=== PATIENT | male | born 1955 | race Caucasian/White ===

== ENCOUNTER → 2017-06-10 10:01 | Outpatient (CLI) | payer MEDICARE, SELFPAY ==
[2017-06-10 10:08] LABS: Microscopic, Urine URINE MICROSCOPIC (MICROSCOPIC)
[2017-06-10 10:33] LABS: Basophils % 0.3 % (0.1-2.0); Eosinophils # 0.1 K/mm3 (0.0-0.4); Eosinophils % 0.8 % (0.1-12.0); Hematocrit 44.2 % (42.0-52.0); Hemoglobin 14.5 g/dL (14.1-18.0); Lymphocytes % 16.7 K/mm3 (10-50); Mean Corpuscular HGB Conc 32.9 g/dL (31.8-35.4); Mean Corpuscular Volume 94.3 fl (80-94); Mean Platelet Volume 6.7 fl (7.4-10.4); Monocytes # 0.4 K/mm3 (0.1-1.0); Monocytes % 6.6 % (1.7-9.3); Neutrophils # 4.4 K/mm3 (1.8-7.8); Neutrophils % 75.5 % (37.0-80.0); Platelet Count 294 K/mm3 (142-424); Red Blood Count 4.68 M/mm3 (4.60-6.20); Red Cell Distribution Width 13.2 % (11.5-17.5); White Blood Count 5.8 K/mm3 (4.8-10.8)
[2017-06-10 10:57] LABS: Alanine Aminotransferase 14 U/L (12-78); Albumin Level 3.4 gm/dL (3.4-5.0); Alkaline Phosphatase 93 U/L (46-116); Anion Gap 11.3 mEq/L (5-15); Aspartate Amino Transferase 12 U/L (15-37); Bilirubin,Total 0.2 mg/dL (0.2-1.0); Blood Urea Nitrogen 9 mg/dL (7-18); Calcium 8.7 mg/dL (8.5-10.1); Carbon Dioxide 28 mmol/L (21.0-32.0); Chloride 102 mmol/L (98-107); Creatinine,Serum 0.61 mg/dL (0.70-1.30); Estimated Glomerular Filt Rate 134 ml/min (>60); GFR (African American) 162 ML/MIN (>60); Globulin 3.3 gm/dl (1.3-3.2); Glucose 99 mg/dL (74-106); Potassium 4.3 mmoL/L (3.5-5.1); Sodium 137 mmol/L (136-145); Total Protein,Serum 6.7 gm/dL (6.4-8.2)
[2017-06-10 11:13] LABS: Appearance,Urine CLEAR (Clear); Bilirubin,Urine Negative (Negative); Blood, Urine TRACE-I (Negative); Color,Urine YELLOW (Yellow); Glucose,Urine (UA) Negative (Negative); Ketones,Urine Negative (Negative); Leukocyte Esterase,Urine Negative (Negative); Nitrate,Urine Negative (Negative); PH,Urine 6.5 (5.0-8.5); Protein,Urine Negative (Negative); Urobilinogen,Urine 0.2 EU/dl (0.2)
[2017-06-10 11:52] LABS: Bacteria,Urine Trace /lpf; RBC,Urine Occasional #/hpf (0-3); Squamous Epithelial Cell,Urine Occasional #/hpf (0-5)
== END ==
PROVIDERS: Visit Provider Surgery
DX: R10.30 Lower abdominal pain, unspecified (principal)
CPT/HCPCS: 36415; 80053; 81001; 85025; 93005

== ENCOUNTER → 2018-07-11 10:10 | Outpatient (CLI) | payer MEDICARE, SELFPAY ==
[2018-07-11 11:02] LABS: Basophils % 0.2 % (0.1-2.0); Eosinophils # 0.1 K/mm3 (0.0-0.4); Eosinophils % 0.9 % (0.1-12.0); Hematocrit 36.9 % (42.0-52.0); Hemoglobin 12.3 g/dL (14.1-18.0); Lymphocytes # 0.4 K/mm3 (0.7-4.5); Lymphocytes % 7.2 % (10-50); Mean Corpuscular HGB Conc 33.4 g/dL (31.8-35.4); Mean Corpuscular Hemoglobin 31.4 pg (27.0-31.2); Mean Corpuscular Volume 94.1 fl (80-94); Mean Platelet Volume 6.5 fl (7.4-10.4); Monocytes # 0.4 K/mm3 (0.1-1.0); Monocytes % 5.9 % (1.7-9.3); Neutrophils # 5.2 K/mm3 (1.8-7.8); Neutrophils % 85.8 % (37.0-80.0); Platelet Count 232 K/mm3 (142-424); Red Blood Count 3.92 M/mm3 (4.60-6.20); Red Cell Distribution Width 13.7 % (11.5-17.5)
[2018-07-11 11:12] LABS: MANUAL DIFFERENTIAL MANUAL DIFFERENTIAL (MANUAL DIFF)
[2018-07-11 11:53] LABS: Alanine Aminotransferase 21 U/L (12-78); Albumin Level 3.6 gm/dL (3.4-5.0); Albumin/Globulin Ratio 1.2 (1.1-1.8); Alkaline Phosphatase 97 U/L (46-116); Anion Gap 14.5 mEq/L (5-15); Aspartate Amino Transferase 18 U/L (15-37); Bilirubin,Total 0.3 mg/dL (0.2-1.0); Blood Urea Nitrogen 7 mg/dL (7-18); Calcium 8.8 mg/dL (8.5-10.1); Carbon Dioxide 25 mmol/L (21.0-32.0); Chloride 89 mmol/L (98-107); Creatinine,Serum 0.53 mg/dL (0.70-1.30); Estimated Glomerular Filt Rate 157 ml/min (>60); GFR (African American) 189 ML/MIN (>60); Globulin 3.1 gm/dl (1.3-3.2); Glucose 87 mg/dL (74-106); Potassium 4.5 mmoL/L (3.5-5.1); Sodium 124 mmol/L (136-145); Thyroid Stimulating Hormone 0.54 uIU/ml (0.358-3.740); Total Protein,Serum 6.7 gm/dL (6.4-8.2)
[2018-07-11 13:13] LABS: Eosinophils % 1 % (0-3); Lymphocytes % 7 % (10-50); Monocytes % 5 % (2-9); Neutrophils % 87 % (42-76); Platelet Estimate Normal; RBC Morphology Normal; Total Cells Counted 100
[2018-07-12 07:02] LABS: Vitamin B12 263 pg/mL (232-1245)
[2018-07-12 10:54] LABS: Folate 19.3 ng/mL (>3.0); Rapid Plasma Reagin Ab Titer Non Reactive (NonRea<1:1)
[2018-07-13 14:10] LABS: Vitamin B1 108.2 nmol/L (66.5-200.0)
== END ==
PROVIDERS: Visit Provider Specialist
DX: F03.91 Unspecified dementia, unspecified severity, with behavioral disturbance (principal); G20 Parkinson's disease; G95.9 Disease of spinal cord, unspecified; H51.0 Palsy (spasm) of conjugate gaze; R29.2 Abnormal reflex; R48.2 Apraxia; E03.9 Hypothyroidism, unspecified
CPT/HCPCS: 36415; 80053; 82607; 82746; 84425; 84443; 85007; 85025; 86592

== ENCOUNTER → 2018-07-18 13:29 | Outpatient (CLI) | payer MEDICARE, SELFPAY ==
--- NOTE | 2018-07-18 13:32 | MR_ITS ---
MR cervical spine wo con, MR 3-d myelogram/MRCP HISTORY: Neck pain, headache. X5wks. ITS.REASON: evaluation for normal pressure hydrocephalus ORDERING PHYSICIAN: Maru Beltrán MD PATIENT AGE: 62 years Comparison: None TECHNIQUE: Standard multiplanar multiecho sequences are performed without contrast. 3-D MIP and myelographic images are also rendered and reviewed FINDINGS: The craniocervical junction has an unremarkable appearance. Alignment is maintained. There is multilevel cervical spondylosis with degenerative disc disease and facet and uncovertebral hypertrophy with canal stenosis at multiple levels. C2-C3: Degenerative disc disease with bulging disc/disc osteophyte complex and hypertrophy of the laminae with resultant canal stenosis of 8 mm with compression upon both the anterior and posterior aspect of the cord with canal measuring approximately 6 mm. There is bilateral foraminal narrowing. C3-C4: Bulging disc/disc osteophyte complex along with hypertrophy of the lamina leads to severe canal stenosis of approximately 5 mm with compression upon both the anterior and posterior aspect of the cord. Bilateral lateral recess and foraminal narrowing also noted slightly greater on the left. C4-C5: Degenerative disc disease. There is 3 mm anterolisthesis of C4 with bulging disc along with facet and ligamentum flavum hypertrophy with canal stenosis with canal measuring 6 mm with mild impingement upon the cord and moderate to severe bilateral foraminal narrowing. C5-C6: Degenerative disc disease. There is ridging of the endplates posteriorly with broad-based disc protrusion versus disc osteophyte complex with canal stenosis and bilateral lateral recess and foraminal narrowing. There is mild kyphosis at this level. C6-C7: Degenerative disc disease with bulging disc with narrowing of the canal with bilateral foraminal narrowing and canal stenosis. C7-T1: Degenerative disc disease with narrowing of the canal. Incidental note is made of enlarged right lobe of the thyroid gland with tracheal shift to the left by approximately 1 cm. IMPRESSION: Abnormal MRI of the cervical spine. There is multilevel degenerative disc disease with disc osteophyte complexes with resultant severe canal stenosis at multiple levels with cord compression along with lateral recess and foraminal narrowing. Please see above for detailed description at each level. Enlarged right lobe of the thyroid gland with tracheal compression for the left
--- NOTE | 2018-07-18 13:32 | MR_ITS ---
MR head/brain wo con HISTORY: Headache, double vision, dizziness ITS.REASON: evaluation for normal pressure hydrocephalus ORDERING PHYSICIAN: Maru Beltrán MD PATIENT AGE: 62 years Comparison: None TECHNIQUE: Standard multiplanar multiecho sequences are performed without contrast. FINDINGS: No midline shift, mass effect, intracranial hemorrhage, or hydrocephalus is evident. No evidence of acute infarction. There is some mild atrophy. Nonspecific periventricular and subcortical T2 white matter hyperintensities are present along with nonspecific central increase in T2 signal within the jessica. Is are likely related to areas of ischemic gliotic change from microvascular disease. No restricted diffusion. The ventricles are not enlarged considering the mild degree of atrophy and there is no evidence of transependymal flow of CSF. The cerebellopontine angles, cerebellum, and brainstem are unremarkable. No mastoid effusion or sinus air-fluid level. The optic chiasm and craniocervical junction are unremarkable. There is canal stenosis in the upper cervical spine as described in the MRI C-spine report. There is a small area decreased T2 signal within the posterior aspect of the pituitary. This is of questionable clinical significance. IMPRESSION: 1. No acute intracranial findings. 2. No evidence of hydrocephalus. 3. Mild atrophy with periventricular ischemic gliotic change.
== END ==
PROVIDERS: PCP Emergency Medicine; Visit Provider Specialist
DX: F03.91 Unspecified dementia, unspecified severity, with behavioral disturbance (principal); G20 Parkinson's disease; G95.9 Disease of spinal cord, unspecified; H51.0 Palsy (spasm) of conjugate gaze; R29.2 Abnormal reflex; R48.2 Apraxia
CPT/HCPCS: 70551; 72141; 76376

== ENCOUNTER → 2018-07-28 14:05 | Outpatient (POV) | payer MEDICARE, SELFPAY | PROVIDERS: Visit Provider Neurological Surgery | DX: Z00.00 Encounter for general adult medical examination without abnormal findings (principal) ==

== ENCOUNTER → 2018-08-11 13:01 | Outpatient (CLI) | payer MEDICARE, SELFPAY ==
--- NOTE | 2018-08-11 13:03 | US_ITS ---
US thyroid HISTORY: ITS.REASON: enlarged thyroid ORDERING PHYSICIAN: Yovany Lebron MD PATIENT AGE: 62 years Comparison: None FINDINGS: The right lobe of the thyroid gland is enlarged at 6 x 2.3 x 3 cm. Multiple nodules are present including Nodule A: Mixed echogenicity in the mid polar region at 17 x 10 mm. Nodule B: Solid appearing isoechoic nodule in the lower pole at 26 x 24 mm. The left lobe is enlarged at 5.2 x 1.8 x 2.2 cm. A mixed nodule is present in the upper pole at 6 x 4 mm. A slightly hyperechoic nodule present in the lower pole at 7 x 9 mm. A isoechoic 17 x 14 mm nodule is present in the lower pole on the left IMPRESSION: Enlarged thyroid gland with dominant 26 x 24 mm solid-appearing nodule in the lower pole on the right. Other smaller nodules are noted bilaterally as described above
[2018-08-11 15:28] LABS: Free T4 (Free Thyroxine) 2.35 ng/dl (0.76-1.46); Thyroid Stimulating Hormone 0.66 uIU/ml (0.358-3.740)
[2018-08-13 20:35] LABS: Triiodothyronine (T3) Free 2.7 pg/mL (2.0-4.4)
== END ==
PROVIDERS: PCP Emergency Medicine; Visit Provider Otolaryngology
DX: E04.9 Nontoxic goiter, unspecified (principal); J39.8 Other specified diseases of upper respiratory tract
CPT/HCPCS: 36415; 76536; 84439; 84443; 84481

== ENCOUNTER → 2018-08-11 13:58 | Outpatient (CLI) | payer MEDICARE, SELFPAY | PROVIDERS: Visit Provider Otolaryngology | DX: E04.9 Nontoxic goiter, unspecified (principal); J39.8 Other specified diseases of upper respiratory tract | CPT/HCPCS: 36415; 76536; 84439; 84443; 84481 ==

== ENCOUNTER → 2018-09-27 09:55 | Outpatient (CLI) | payer MEDICARE, MEDICAID, SELFPAY ==
--- NOTE | 2018-09-27 10:16 | US_ITS ---
US FNA Thyroid HISTORY: ITS.REASON: RT THYROID NODULE ORDERING PHYSICIAN: Yovany Lebron MD PATIENT AGE: 63 years COMPARISON: None TECHNIQUE: Following obtaining informed consent, using aseptic technique and local anesthesia with buffered lidocaine, fine-needle aspiration was performed of the dominant lower pole nodule on the right of interest using sonographic guidance. 3 passes were made into the nodule with a 25-gauge needle. Specimen was given to cytology. The patient tolerated the procedure well without evidence of immediate complications and left the ultrasound suite in stable condition. CYTOLOGY:Benign cystic follicular nodule, negative for malignancy IMPRESSION: Successful sonographic guided fine needle aspiration of the right lobe of the thyroid gland showing benign findings.
== END ==
PROVIDERS: PCP Emergency Medicine; Visit Provider Otolaryngology
DX: E04.1 Nontoxic single thyroid nodule (principal)
CPT/HCPCS: 10005; 76536; 76942; 88173; 88305

== ENCOUNTER 2018-11-17 16:27 | Inpatient (IN) ==
--- NOTE | 2018-11-17 16:37 | Emergency Department Note ---
ED Disposition Clinical Impression: Healthcare-associated pneumonia, Ureteral calculus Disposition: Admitted as Observation Condition on Discharge: Good Referrals: Chad Byers MD [Primary Care Provider] - - Critical Care Critical Care Time: No Attestation: On , the high probability of a clinically significant, sudden or life threatening deterioration of the following system(s) required my full and direct attention, intervention and personal management. The time I documented below is in addition to time spent performing reported procedures but includes the following listed in this critical care notation. Medical Decision Making - Raul Inquiry Pt receiving controlled substance: No Vital Signs: 11/17/18 16:29 11/17/18 16:49 11/17/18 17:14 Temperature 99.1 F 99.7 F H Temperature Source Axillary Rectal Pulse Rate [Right Brachial] 80 99 H Respiratory Rate 20 Blood Pressure [Right Arm] 145/92 H 137/71 Blood Pressure Mean [Right Arm] 109 93 Blood Pressure Source [Right Arm] Automatic Cuff Automatic Cuff Blood Pressure Position [Right Arm] Sitting Sitting 02 Sat by Pulse Oximetry 96 92 L Oxygen Delivery Method Room Air Room Air 11/17/18 17:45 Temperature Temperature Source Pulse Rate [Right Brachial] 89 Respiratory Rate Blood Pressure [Right Arm] 138/80 Blood Pressure Mean [Right Arm] 99 Blood Pressure Source [Right Arm] Automatic Cuff Blood Pressure Position [Right Arm] Sitting 02 Sat by Pulse Oximetry 96 Oxygen Delivery Method Room Air - Lab Data Lab Results 11/17/18 16:50: WBC 19.4 H, RBC 3.95 L, Hgb 12.0 L, Hct 36.9 L, MCV 93.5, MCH 30.3, MCHC 32.4, RDW 14.9, Plt Count 420, MPV 6.2 L, Neut % (Auto) 92.5 H, Lymph % (Auto) 3.1 L, [place] % (Auto) 4.1, Eos % (Auto) 0.2, Baso % (Auto) 0.1, Neut # (Auto) 17.9 H, Lymph # (Auto) 0.6 L, [place] # (Auto) 0.8, Eos # (Auto) 0.0, Baso # (Auto) 0.0, Total Counted 100, Neutrophils % (Manual) 92 H, Band Neutrophils % 5.0, Lymphocytes % (Manual) 2 L, Metamyelocytes % 1.0, Platelet Estimate Normal, RBC Morphology Normal 11/17/18 16:50: Sodium 137, Potassium 3.8, Chloride 100, Carbon Dioxide 31, Anion Gap 9.8, BUN 18, Creatinine 0.82, Estimated Creat Clear 75, Estimated GFR 94, Est GFR ( Amer) 114, Glucose 102, Calcium 9.0, Total Bilirubin 0.3, AST 19, ALT 32, Alkaline Phosphatase 117 H, Troponin I < 0.02, Total Protein 6 .8, Albumin 2.9 L, Globulin 3.9 H, Albumin/Globulin Ratio 0.7 L, TSH 0.62 11/17/18 17:00: Urine Color Dark yellow, Urine Appearance Clear, Urine pH 6.5, Ur Specific [place] 1.025, Urine Protein Trace, Urine Glucose (UA) Negative, Urine Ketones Negative, Urine Blood 3+, Urine Nitrate Negative, Urine Bilirubin Negative, Urine Urobilinogen 2.0, Ur Leukocyte Esterase Negative, Urine RBC 50- 100, Urine WBC Occasional, Ur Squamous Epith Cells Occasional, Urine Bacteria Trace 11/17/18 17:05: Lactate 0.9 Result diagrams: 11/17/18 16:50 11/17/18 16:50 Orders (Tests/Meds): ED MEDICATIONS Generic Name Dose Route Start Last Admin Trade Name Freq PRN Reason Stop Dose Admin Cefepime HCl 2 gm/ Sodium 100 mls @ 200 mls/hr 11/17/18 19:45 11/17/18 19:53 Chloride IV 12/01/18 19:44 200 mls/hr Q12H ELVIS Administration Protocol Levofloxacin/Dextrose 750 mg in 150 mls @ 100 mls/hr 11/17/18 19:45 11/17/18 20:42 Levofloxacin 750mg/150ml Premix IV 12/01/18 19:44 100 mls/hr Q24H ELVIS Administration Protocol Miscellaneous 1 each 11/17/18 19:45 Vancomycin Consult Request NOTAPPLIC 11/18/18 07:37 CONSULT PHARMACY ELVIS ORDERS Category Date Time Status CT abdomen pelvis wo con Stat Cat Scan 11/17/18 17:38 Taken Blood Culture Stat Micro 11/17/18 17:00 Received Urine Culture Routine Micro 11/17/18 20:20 Ordered - CT Data CT Scan: Abdomen, Pelvis Time Received: 19:[address] Reviewed: Yes: I have viewed the radiologist's interpretation Findings Narrative: CT scan interpreted by [facility] radiologist. Faxed report received and reviewed: High concern for a 4 mm stone in the distal left ureter without significant upstream hydroureteronephrosis, however there is mild left pelviectasis when compared with the right. Follow-up is recommended. Severe constipation. Concern for developing airspace disease versus scarring in the right lung base. - ECG Data Tracing #1 EKG interpreted by Derek Arguello MD: Rhythm: sinus Rate: 91 [place]: normal Ectopy: none Conduction: normal ST Segment Changes: none T Wave Changes: none Q Waves: none No evidence of acute ischemia or injury - Physician Consults Physician Consulted: Zeeshan Time: 20:35 Reason -: Admission Comment/Response: Agrees to admit the patient to the hospital. We discussed the patient's clinical information, including history, exam, laboratory and radiology results and ED course. Per hospital procedure, I will write temporary bridge inpatient orders on the patient. Specific orders requested by the admitting physician: Continue antibiotics General Adult HPI - General Chief complaint: Weakness Stated complaint: WEAKNESS Time Seen by Provider: 11/17/18 16:37 - History of Present Illness HPI narrative: Brought in by ambulance from alf. Patient has speech that is very difficult to understand, making history taking difficult. Able to answer yes/no questions without difficulty. He indicates to me that he does not have any edel n. He denies any specific complaint. He was sent here because he is weak. Decrease in functioning, unable to feed himself today. The patient is noted to have a cough in the emergency room. He denies trouble breathing. He knows he is in the hospital. He states he does not know the year. Noted to have been seen here 4 days ago for a fall. Had a CAT scan of his head as well as his entire spine and an extensive work-up. - Related Data Home Medications Medication Instructions Recorded Confirmed acetaminophen 325 mg capsule 650 mg PO Q4-6H PRN 06/09/17 11/13/18 levothyroxine 75 mcg capsule 75 mcg PO ONCE 06/09/17 11/13/18 lorazepam 1 mg tablet 0.5 mg PO DAILY 06/09/17 11/13/18 pravastatin 80 mg tablet 80 mg PO QHS 06/09/17 11/13/18 risperidone 4 mg tablet 0.5 mg PO ONCE 06/09/17 11/13/18 haloperidol 5 mg tablet 2.5 mg PO BID 28 Days #56 tab 07/11/18 11/13/18 oxcarbazepine 600 mg tablet 600 mg PO BID 28 Days #56 tab 07/11/18 11/13/18 sertraline 100 mg tablet 100 mg PO DAILY 28 Days #28 tab 07/11/18 11/13/18 LORazepam [Lorazepam 1mg Tablet] 1 mg PO DAILY 11/13/18 11/13/18 risperiDONE [Risperdal 1mg Tablet] 4 mg PO BID 11/13/18 11/13/18 Allergies Allergy/AdvReac Type Severity Reaction Status Date / Time No Known Allergies Allergy Verified 11/08/18 15:02 [facility] History - Hepatitis A Screen Attestation statement:: This patient has been screened for Hepatitis A risk factors. I have reviewed the patient's past medical history: Yes Medical History: Reports:: Hyperlipidemia, Hypertension Denies:: Diabetes Mellitus Type 1, Diabetes Mellitus Type 2 Other Medical History: Reports: Thyroid Disease Comment: mood disorder w/ hx of delusions Laterality Cases: Bilateral: Tonsillectomy - Social History Smoking Status: Current every day smoker Tobacco Type: cigarettes # Packs/Day (cigarettes): 1 Alcohol Intake: never Alcohol Intake Frequency:: other Substance Use Type: denies use Occupational Status: retired Housing: assisted living facility Family Hx:: Unable to obtain ROS Obtained: Yes All systems reviewed & no additional complaints - Constitutional Constitutional: Reports weakness - ENT Ears, Nose, Mouth, and Throat: Denies otalgia, Denies sore throat - Cardiovascular Cardiovascular: Denies chest pain - Respiratory Respiratory: Yes cough, No dyspnea - Gastrointestinal Gastrointestingal: Denies: abdominal pain, diarrhea, vomiting - Neurologic Neurologic: Denies headache(s) Physical Exam - General General appearance: alert, in no apparent distress - Head Head exam: atraumatic, normocephalic - Eye Eye exam: Present: normal appearance, EOMI - ENT ENT exam: Present: mucous membranes moist - Neck Neck exam: Present: normal inspection, trachea midline - Chest Chest inspection: Present: normal inspection, symmetric chest wall rise - Respiratory Respiratory exam: Present: normal lung sounds bilaterally, other (congested cough). Absent: respiratory distress - Cardiovascular Cardiovascular exam: Present: regular rate, normal rhythm, normal heart sounds - Abdominal Exam Abdominal exam: Present: soft, normal bowel sounds. Absent: distention, tenderness, guarding, rebound, rigidity Comment: Abdomen very soft. No grimace or guarding with palpation. - Extremities Exam Extremities exam: Present: normal inspection - Neurological Exam Neurological exam: Present: alert, other (General weakness, but no focal weakness. 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 Wiggles toes both feet.) - Psychiatric Psychiatric exam: Present: normal affect, normal mood - Skin Skin exam: Present: warm, dry
[2018-11-17 17:03] LABS: Basophils % 0.1 % (0.1-2.0); Eosinophils % 0.2 % (0.1-12.0); Hematocrit 36.9 % (42.0-52.0); Lymphocytes # 0.6 K/mm3 (0.7-4.5); Lymphocytes % 3.1 % (10-50); Mean Corpuscular HGB Conc 32.4 g/dL (31.8-35.4); Mean Corpuscular Volume 93.5 fl (80-94); Mean Platelet Volume 6.2 fl (7.4-10.4); Monocytes # 0.8 K/mm3 (0.1-1.0); Monocytes % 4.1 % (1.7-9.3); Neutrophils # 17.9 K/mm3 (1.8-7.8); Neutrophils % 92.5 % (37.0-80.0); Platelet Count 420 K/mm3 (142-424); Red Blood Count 3.95 M/mm3 (4.60-6.20); Red Cell Distribution Width 14.9 % (11.5-17.5); White Blood Count 19.4 K/mm3 (4.8-10.8)
[2018-11-17 17:13] LABS: Microscopic, Urine URINE MICROSCOPIC (MICROSCOPIC)
[2018-11-17 17:15] LABS: Appearance,Urine CLEAR (Clear); Blood, Urine 3+ (Negative); Glucose,Urine (UA) Negative (Negative); Ketones,Urine Negative (Negative); Leukocyte Esterase,Urine Negative (Negative); PH,Urine 6.5 (5.0-8.5); Protein,Urine TRACE (Negative); Specific Gravity, Urine 1.025 (1.005-1.030)
[2018-11-17 17:18] LABS: Bilirubin,Urine Negative (Negative); Color,Urine Dark Yellow (Yellow)
[2018-11-17 17:22] LABS: Alanine Aminotransferase 32 U/L (12-78); Albumin Level 2.9 gm/dL (3.4-5.0); Albumin/Globulin Ratio 0.7 (1.1-1.8); Alkaline Phosphatase 117 U/L (46-116); Anion Gap 9.8 mEq/L (5-15); Aspartate Amino Transferase 19 U/L (15-37); Bilirubin,Total 0.3 mg/dL (0.2-1.0); Blood Urea Nitrogen 18 mg/dL (7-18); Carbon Dioxide 31 mmol/L (21.0-32.0); Chloride 100 mmol/L (98-107); Globulin 3.9 gm/dl (1.3-3.2); Glucose 102 mg/dL (74-106); Lymphocytes % 2 % (10-50); Neutrophils % 92 % (42-76); Sodium 137 mmol/L (136-145); Thyroid Stimulating Hormone 0.62 uIU/ml (0.358-3.740); Total Cells Counted 100; Total Protein,Serum 6.8 gm/dL (6.4-8.2)
[2018-11-17 17:23] LABS: RBC Morphology Normal
[2018-11-17 17:23] LABS: Bacteria,Urine Trace /lpf; RBC,Urine 50-100 #/hpf (0-3); Squamous Epithelial Cell,Urine Occasional #/hpf (0-5); WBC,Urine Occasional #/hpf (0-3)
--- NOTE | 2018-11-17 22:22 | History & Physical Report ---
*Admission Date: 11/17/18 *Chief complaint: change in mental status *History of present illness: this wm who resides at [facility] was noted -ought in by ambulance from senior living. Patient has speech that is very difficult to understand, making history taking difficult. Able to answer yes/no questions without difficulty. He indicates to me that he does not have any pain. He denies any specific complaint. He was sent here because he is weak. Decrease in functioning, unable to feed himself today. The patient is noted to have a cough in the emergency room. He denies trouble breathing. He knows he is in the hospital. He states he does not know the year. Noted to have been seen here 4 days ago for a fall. Had a CAT scan of his head as well as his entire spine and an extensive work-up. pt was admitted with [facility] History I have reviewed the patient's past medical history: Yes Medical History: Reports:: Hyperlipidemia, Hypertension Denies:: Diabetes Mellitus Type 1, Diabetes Mellitus Type 2 *Have you ever received a pneumonia vaccine?: No (UNKNOWN) *Have you received a flu vaccine this season?: No (UNKNOWN) Other Medical History: Reports: Thyroid Disease Laterality Cases: Bilateral: Tonsillectomy - *Social History Smoking Status: Current every day smoker Tobacco Type: cigarettes # Packs/Day (cigarettes): 1 Alcohol Intake: never Alcohol Intake Frequency:: other Substance Use Type: denies use *Occupational Status:: retired Housing: assisted living facility *Travel in the last 8 weeks: None Family Hx:: Unable to obtain Review of Systems - Review of Systems Review of systems:: pertinent systems reviewed and negative unless documented below - Constitutional Denies fever(s) - Eyes Denies change in vision - ENT Denies sore throat - *Cardiovascular Denies shortness of breath - *Respiratory Reports cough, Denies coughing up blood - *Gastrointestinal Denies abdominal pain - *Genitourinary Denies blood in urine - *Musculoskeletal Denies joint pain - Integumentary/Breasts Denies rash - *Neurologic Reports weakness, Denies headache(s) - Psychiatric Reports anxiety Meds Home Medications Medication Instructions Recorded Confirmed Type levothyroxine 75 mcg capsule 75 mcg PO DAILY 06/09/17 11/17/18 History lorazepam 1 mg tablet 0.5 mg PO DAILY 06/09/17 11/17/18 History pravastatin 80 mg tablet 80 mg PO QHS 06/09/17 11/17/18 History risperidone 4 mg tablet 0.5 mg PO DAILY 06/09/17 11/17/18 History haloperidol 5 mg tablet 2.5 mg PO BID 28 Days #56 tab 07/11/18 11/18/18 History oxcarbazepine 600 mg tablet 600 mg PO BID 28 Days #56 tab 07/11/18 11/17/18 History sertraline 100 mg tablet 100 mg PO DAILY 28 Days #28 tab 07/11/18 11/17/18 History LORazepam [Lorazepam 1mg Tablet] 1 mg PO HS 11/13/18 11/17/18 History risperiDONE [Risperdal 1mg Tablet] 4 mg PO BID 11/13/18 11/17/18 History Thiamine HCl [Vitamin B-1] 100 mg PO DAILY 11/17/18 11/17/18 History Acetaminophen 650 mg PO Q4-6H PRN 11/18/18 11/18/18 History Allergies Allergy/AdvReac Type Severity Reaction Status Date / Time No Known Allergies Allergy Verified 11/08/18 15:02 Exam Vital signs and Labs for Last 24 Hours: Temp Pulse Resp BP Pulse Ox 99.7 F H 88 16 146/78 H 96 11/17/18 21:57 11/17/18 21:57 11/17/18 21:57 11/17/18 21:57 11/17/18 17:45 Laboratory Results - last 24 hr 11/17/18 16:50: WBC 19.4 H, RBC 3.95 L, Hgb 12.0 L, Hct 36.9 L, MCV 93.5, MCH 30.3, MCHC 32.4, RDW 14.9, Plt Count 420, MPV 6.2 L, Neut % (Auto) 92.5 H, Lymph % (Auto) 3.1 L, [place] % (Auto) 4.1, Eos % (Auto) 0.2, Baso % (Auto) 0.1, Neut # (Auto) 17.9 H, Lymph # (Auto) 0.6 L, [place] # (Auto) 0.8, Eos # (Auto) 0.0, Baso # (Auto) 0.0, Total Counted 100, Neutrophils % (Manual) 92 H, Band Neutrophils % 5.0, Lymphocytes % (Manual) 2 L, Metamyelocytes % 1.0, Platelet Estimate Normal, RBC Morphology Normal 11/17/18 16:50: Sodium 137, Potassium 3.8, Chloride 100, Carbon Dioxide 31, Anion Gap 9.8, BUN 18, Creatinine 0.82, Estimated Creat Clear 75, Estimated GFR 94, Est GFR ( Amer) 114, Glucose 102, Calcium 9.0, Total Bilirubin 0.3, AST 19, ALT 32, Alkaline Phosphatase 117 H, Troponin I < 0.02, Total Protein 6.8, Albumin 2.9 L, Globulin 3.9 H, Albumin/Globulin Ratio 0.7 L, TSH 0.62 11/17/18 17:00: Urine Color Dark yellow, Urine Appearance Clear, Urine pH 6.5, Ur Specific [place] 1.025, Urine Protein Trace, Urine Glucose (UA) Negative, [place] Ketones Negative, Urine Blood 3+, Urine Nitrate Negative, Urine Bilirubin Negative, Urine Urobilinogen 2.0, Ur Leukocyte Esterase Negative, Urine RBC 50- 100, Urine WBC Occasional, Ur Squamous Epith Cells Occasional, Urine Bacteria Trace 11/17/18 17:05: Lactate 0.9 I & O for Last 24 hours: Intake & Output 11/15/18 11/16/18 11/17/18 11/18/18 11:59 11:59 11:59 11:59 Intake Total 200 / 200 Balance 200 / 200 Weight 158 lb 8 oz - Constitutional no acute distress - *Routine HEENT Exam Head: Present: normocephalic Eye: Present: EOMI, PERRL. Absent: conjunctival icterus ENT: Present: mucous membranes dry - *Routine Neck Exam Absent: JVD - *Routine Respiratory Exam Present: decreased breath sounds - *Routine Cardiovascular Exam Present: RRR, murmur, S4 - *Routine Abdominal Exam Present: soft - *Routine Extremities Exam Absent: calf tenderness - *Routine Skin Exam Present: intact - *Routine Neurological Exam Present: alert, CN II-XII intact, altered mental status no focal changes - Routine Psychiatric Exam Present: unable to assess Assessment and Plan (1) Hypothyroidism Current visit: Yes Status: Acute Qualifiers: Hypothyroidism type: acquired Qualified Code(s): E03.9 - Hypothyroidism, unspecified Category: Medical Code(s): E03.9 - Hypothyroidism, unspecified (2) Healthcare-associated pneumonia Current visit: Yes Status: Acute Category: Medical Code(s): J18.9 - Pneumonia, unspecified organism (3) Ureteral calculus Current visit: Yes Status: Acute Category: Medical Code(s): N20.1 - Calculus of ureter (4) Parkinson disease Current visit: Yes Status: Acute Category: Medical Code(s): G20 - Parkinson's disease
[2018-11-18 05:53] LABS: Basophils % 0.1 % (0.1-2.0); Eosinophils # 0.1 K/mm3 (0.0-0.4); Eosinophils % 0.6 % (0.1-12.0); Hemoglobin 10.9 g/dL (14.1-18.0); Lymphocytes # 0.7 K/mm3 (0.7-4.5); Lymphocytes % 5.9 % (10-50); Mean Corpuscular HGB Conc 32.1 g/dL (31.8-35.4); Mean Corpuscular Volume 94.4 fl (80-94); Monocytes # 0.9 K/mm3 (0.1-1.0); Monocytes % 7.4 % (1.7-9.3); Neutrophils # 10.2 K/mm3 (1.8-7.8); Neutrophils % 85.9 % (37.0-80.0); Platelet Count 347 K/mm3 (142-424); Red Cell Distribution Width 14.9 % (11.5-17.5); White Blood Count 11.8 K/mm3 (4.8-10.8)
[2018-11-18 06:00] LABS: Anion Gap 8.8 mEq/L (5-15)
--- NOTE | 2018-11-18 07:42 | Pharmacy Consult Notes ---
[facility] Pharmacy VTE Monitoring - Patient Demographics Admission date: 11/18/18 Report Date: 11/18/18 Time: 07:41 Allergies/Adverse Reactions: Patient Allergies No Known Allergies Allergy (Verified 11/08/18 15:02) Height: 1.75 m Weight: 68.492 kg Patient Problems: Current Active Problems Healthcare-associated pneumonia (Acute) Ureteral calculus (Acute) - VTE Risk Labs: VTE Related Lab Results Hgb 10.9 g/dL (14.1-18.0) L 11/18/18 05:25 Hct 34.0 % (42.0-52.0) L 11/18/18 05:25 Plt Count 347 K/mm3 (142-424) 11/18/18 05:25 BUN 15 mg/dL (7-18) 11/18/18 05:25 Creatinine 0.57 mg/dL (0.70-1.30) L D 11/18/18 05:25 Estimated Creat Clear 71 mL/min (50-200) 11/18/18 05:25 Was VTE Risk Assessment Performed: Yes VTE Score: 4 VTE Risk Level: Low Risk Clinical Trial Participant: No - Prophylaxis VTE Prophylaxis Ordered?: Yes Types of VTE Prophylaxis: TEDS Knee High
--- NOTE | 2018-11-18 09:15 | Pharmacy Consult Notes ---
- Pharmacy Consult Date: 11/18/18 Time: 09:14 Referring provider: DR. ASTORGA Reason for Consult:: VANCOMYCIN DOSING Allergies and ADEs:: Allergies Allergy/AdvReac Type Severity Reaction Status Date / Time No Known Allergies Allergy Verified 11/08/18 15:02 Home Medications:: Home Medications Medication Instructions Recorded Confirmed Type levothyroxine 75 mcg capsule 75 mcg PO DAILY 06/09/17 11/17/18 History lorazepam 1 mg tablet 0.5 mg PO DAILY 06/09/17 11/17/18 History pravastatin 80 mg tablet 80 mg PO QHS 06/09/17 11/17/18 History risperidone 4 mg tablet 0.5 mg PO DAILY 06/09/17 11/17/18 History haloperidol 5 mg tablet 2.5 mg PO BID 28 Days #56 tab 07/11/18 11/18/18 History oxcarbazepine 600 mg tablet 600 mg PO BID 28 Days #56 tab 07/11/18 11/17/18 History sertraline 100 mg tablet 100 mg PO DAILY 28 Days #28 tab 07/11/18 11/17/18 History LORazepam [Lorazepam 1mg Tablet] 1 mg PO HS 11/13/18 11/17/18 History risperiDONE [Risperdal 1mg Tablet] 4 mg PO BID 11/13/18 11/17/18 History Thiamine HCl [Vitamin B-1] 100 mg PO DAILY 11/17/18 11/17/18 History Acetaminophen 650 mg PO Q4-6H PRN 11/18/18 11/18/18 History Height: 1.75 m Weight: 68.492 kg Laboratory Results:: Laboratory Results - last 24 hr 11/17/18 16:50: WBC 19.4 H, RBC 3.95 L, Hgb 12.0 L, Hct 36.9 L, MCV 93.5, MCH 30.3, MCHC 32.4, RDW 14.9, Plt Count 420, MPV 6.2 L, Neut % (Auto) 92.5 H, Lymph % (Auto) 3.1 L, [place] % (Auto) 4.1, Eos % (Auto) 0.2, Baso % (Auto) 0.1, Neut # (Auto) 17.9 H, Lymph # (Auto) 0.6 L, [place] # (Auto) 0.8, Eos # (Auto) 0.0, Baso # (Auto) 0.0, Total Counted 100, Neutrophils % (Manual) 92 H, Band Neutrophils % 5.0, Lymphocytes % (Manual) 2 L, Metamyelocytes % 1.0, Platelet Estimate Normal, RBC Morphology Normal 11/17/18 16:50: Sodium 137, Potassium 3.8, Chloride 100, Carbon Dioxide 31, Anion Gap 9.8, BUN 18, Creatinine 0.82, Estimated Creat Clear 75, Estimated GFR 94, Est GFR ( Amer) 114, Glucose 102, Calcium 9.0, Total Bilirubin 0.3, AST 19, ALT 32, Alkaline Phosphatase 117 H, Troponin I < 0.02, Total Protein 6.8, Albumin 2.9 L, Globulin 3.9 H, Albumin/Globulin Ratio 0.7 L, TSH 0.62 11/17/18 17:00: Urine Color Dark yellow, Urine Appearance Clear, Urine pH 6.5, Ur Specific [place] 1.025, Urine Protein Trace, Urine Glucose (UA) Negative, Urine Ketones Negative, Urine Blood 3+, Urine Nitrate Negative, Urine Bilirubin Negative, Urine Urobilinogen 2.0, Ur Leukocyte Esterase Negative, Urine RBC 50- 100, Urine WBC Occasional, Ur Squamous Epith Cells Occasional, Urine Bacteria Trace 11/17/18 17:05: Lactate 0.9 11/18/18 05:25: WBC 11.8 H D, RBC 3.60 L, Hgb 10.9 L, Hct 34.0 L, MCV 94.4 H, MCH 30.3, MCHC 32.1, RDW 14.9, Plt Count 347, MPV 6.0 L, Neut % (Auto) 85.9 H, L ymph % (Auto) 5.9 L, [place] % (Auto) 7.4, Eos % (Auto) 0.6, Baso % (Auto) 0.1, Neut # (Auto) 10.2 H, Lymph # (Auto) 0.7, [place] # (Auto) 0.9, Eos # (Auto) 0.1, Baso # (Auto) 0.0 11/18/18 05:25: Sodium 137, Potassium 3.8, Chloride 102, Carbon Dioxide 30, Anion Gap 8.8, BUN 15, Creatinine 0.57 L D, Estimated Creat Clear 71, Estimated GFR 143, Est GFR ( Amer) 174 D, Glucose 88, Calcium 9.0 Medical History: Reports:: Hyperlipidemia, Hypertension Denies:: Cancer, Diabetes Mellitus Type 1, Diabetes Mellitus Type 2, MRSA Assessment and Plan (1) Hypothyroidism Current visit: Yes Status: Acute Qualifiers: Hypothyroidism type: acquired Qualified Code(s): E03.9 - Hypothyroidism, unspecified Category: Medical Code(s): E03.9 - Hypothyroidism, unspecified (2) Healthcare-associated pneumonia Current visit: Yes Status: Acute Category: Medical Code(s): J18.9 - Pneumonia, unspecified organism (3) Ureteral calculus Current visit: Yes Status: Acute Category: Medical Code(s): N20.1 - Calculus of ureter (4) Parkinson disease Current visit: Yes Status: Acute Category: Medical Code(s): G20 - Parkinso n's disease - Assessment and plan all Dx Assessment and Plan for all problems:: PATIENT RECEIVED VANCOMYCIN 1250 MG IV ONCE LAST NIGHT. BASED ON PATIENT FAC TORS, RECOMMEND VANCOMYCIN 1500 MG IV Q12H. WILL OBTAIN VANCOMYCIN TROUGH LEVEL TOMORROW PRIOR TO 4TH DOSE. PHARMACY WILL FOLLOW DAILY AND ADJUST APPROPRIATE.
--- NOTE | 2018-11-18 13:18 | Progress Note ---
Internal Medicine - PN: Subj *Date: 11/19/18 *Time: 09:17 Interval history: doing ok better - still confused Exam Vital signs and Labs for Last 24 Hours: Temp Pulse Resp BP Pulse Ox 98.3 F 75 18 139/67 93 L 11/18/18 08:23 11/18/18 08:23 11/18/18 08:23 11/18/18 08:23 11/18/18 08:23 Laboratory Results - last 24 hr 11/17/18 16:50: WBC 19.4 H, RBC 3.95 L, Hgb 12.0 L, Hct 36.9 L, MCV 93.5, MCH 30.3, MCHC 32.4, RDW 14.9, Plt Count 420, MPV 6.2 L, Neut % (Auto) 92.5 H, Lymph % (Auto) 3.1 L, [place] % (Auto) 4.1, Eos % (Auto) 0.2, Baso % (Auto) 0.1, Neut # (Auto) 17.9 H, Lymph # (Auto) 0.6 L, [place] # (Auto) 0.8, Eos # (Auto) 0.0, Baso # (Auto) 0.0, Total Counted 100, Neutrophils % (Manual) 92 H, Band Neutrophils % 5.0, Lymphocytes % (Manual) 2 L, Metamyelocytes % 1.0, Platelet Estimate Normal, RBC Morphology Normal 11/17/18 16:50: Sodium 137, Potassium 3.8, Chloride 100, Carbon Dioxide 31, Anion Gap 9.8, BUN 18, Creatinine 0.82, Estimated Creat Clear 75, Estimated GFR 94, Est GFR ( Amer) 114, Glucose 102, Calcium 9.0, Total Bilirubin 0.3, AST 19, ALT 32, Alkaline Phosphatase 117 H, Troponin I < 0.02, Total Protein 6.8, Albumin 2.9 L, Globulin 3.9 H, Albumin/Globulin Ratio 0.7 L, TSH 0.62 11/17/18 17:00: Urine Color Dark yellow, Urine Appearance Clear, Urine pH 6.5, Ur Specific [place] 1.025, Urine Protein Trace, Urine Glucose (UA) Negative, Urine Ketones Negative, Urine Blood 3+, Urine Nitrate Negative, Urine Bilirubin Negative, Urine Urobilinogen 2.0, Ur Leukocyte Esterase Negative, Urine RBC 50- 100, Urine WBC Occasional, Ur Squamous Epith Cells Occasional, Urine Bacteria Trace 11/17/18 17:05: Lactate 0.9 11/18/18 05:25: WBC 11.8 H D, RBC 3.60 L, Hgb 10.9 L, Hct 34.0 L, MCV 94.4 H, MCH 30.3, MCHC 32.1, RDW 14.9, Plt Count 347, MPV 6.0 L, Neut % (Auto) 85.9 H, L ymph % (Auto) 5.9 L, [place] % (Auto) 7.4, Eos % (Auto) 0.6, Baso % (Auto) 0.1, Neut # (Auto) 10.2 H, Lymph # (Auto) 0.7, [place] # (Auto) 0.9, Eos # (Auto) 0.1, Baso # (Auto) 0.0 11/18/18 05:25: Sodium 137, Potassium 3.8, Chloride 102, Carbon Dioxide 30, Anion Gap 8.8, BUN 15, Creatinine 0.57 L D, Estimated Creat Clear 71, Estimated GFR 143, Est GFR ( Amer) 174 D, Glucose 88, Calcium 9.0 I & O for Last 24 hours: Intake & Output 11/16/18 11/17/18 11/18/18 11/19/18 11:59 11:59 11:59 11:59 Intake Total 952 / 952 240 / 240 Output Total 850 / 850 Balance 102 / 102 240 / 240 Weight 151 lb Microbiology Reports for the Last 24 Hours: Microbiology 11/17/18 17:00 Blood Blood Culture - Preliminary - Constitutional no acute distress - *Routine HEENT Exam Head: Present: normocephalic Eye: Present: EOMI, PERRL ENT: Present: mucous membranes dry - *Routine Neck Exam Present: supple - *Routine Respiratory Exam Present: decreased breath sounds - *Routine Cardiovascular Exam Present: RRR, murmur - *Routine Abdominal Exam Present: soft - *Routine Extremities Exam Absent: calf tenderness - *Routine Skin Exam Present: intact - *Routine Neurological Exam Present: alert, CN II-XII intact - Routine Psychiatric Exam Comments: at baseline Assessment and Plan (1) Hypothyroidism Current visit: Yes Status: Acute Qualifiers: Hypothyroidism type: acquired Qualified Code(s): E03.9 - Hypothyroidism, unspecified Category: Medical Code(s): E03.9 - Hypothyroidism, unspecified (2) Healthcare-associated pneumonia Current visit: Yes Status: Acute Category: Medical Code(s): J18.9 - Pneumonia, unspecified organism (3) Ureteral calculus Current visit: Yes Status: Acute Category: Medical Code(s): N20.1 - Calculus of ureter (4) Parkinson disease Current visit: Yes Status: Acute Category: Medical Code(s): G20 - Parkinson's disease
[2018-11-18 17:15] LABS: Lymphocytes % 4 % (10-50); Monocytes % 3 % (2-9); Neutrophils % 88 % (42-76); Total Cells Counted 100
[2018-11-18 17:17] LABS: Hypochromasia 2+
--- NOTE | 2018-11-19 09:20 | Progress Note ---
Internal Medicine - PN: Subj *Date: 11/19/18 *Time: 09:19 Interval history: doing better - positive blood cul Exam Vital signs and Labs for Last 24 Hours: Temp Pulse Resp BP Pulse Ox 98.0 F 80 18 150/70 H 94 L 11/19/18 07:50 11/19/18 07:50 11/19/18 07:50 11/19/18 07:50 11/19/18 07:50 Laboratory Results - last 24 hr 11/17/18 17:00: Urine Color Dark yellow, Urine Appearance Clear, Urine pH 6.5, Ur Specific [place] 1.025, Urine Protein Trace, Urine Glucose (UA) Negative, Urine Ketones Negative, Urine Blood 3+, Urine Nitrate Negative, Urine Bilirubin Negative, Urine Urobilinogen 2.0, Ur Leukocyte Esterase Negative, Urine RBC 50- 100, Urine WBC Occasional, Ur Squamous Epith Cells Occasional, Urine Bacteria Trace 11/18/18 05:25: Total Counted 100, Neutrophils % (Manual) 88 H, Band Neutrophils % 2.0, Lymphocytes % (Manual) 4 L, Monocytes % (Manual) 3, Metamyelocytes % 3.0 H, Platelet Estimate Normal, Hypochromasia 2+ I & O for Last 24 hours: Intake & Output 11/16/18 11/17/18 11/18/18 11/19/18 11:59 11:59 11:59 11:59 Intake Total 952 / 952 1727 / 1727 Output Total 850 / 850 2440 / 2440 Balance 102 / 102 -713 / -713 Weight 151 lb 151 lb 2 oz Microbiology Reports for the Last 24 Hours: Microbiology 11/17/18 17:00 Blood Blood Culture - Preliminary Gram Positive Cocci - Constitutional no acute distress - *Routine HEENT Exam Head: Present: normocephalic Eye: Present: EOMI, PERRL ENT: Present: mucous membranes dry - *Routine Neck Exam Present: supple - *Routine Respiratory Exam Present: decreased breath sounds - *Routine Cardiovascular Exam Present: RRR - *Routine Abdominal Exam Present: soft - *Routine Extremities Exam Absent: calf tenderness - *Routine Skin Exam Present: intact - *Routine Neurological Exam Present: alert, CN II-XII intact - Routine Psychiatric Exam Present: unable to assess Assessment and Plan (1) Hypothyroidism Current visit: Yes Status: Acute Qualifiers: Hypothyroidism type: acquired Qualified Code(s): E03.9 - Hypothyroidism, unspecified Category: Medical Code(s): E03.9 - Hypothyroidism, unspecified (2) Healthcare-associated pneumonia Current visit: Yes Status: Acute Category: Medical Code(s): J18.9 - Pneumonia, unspecified organism (3) Ureteral calculus Current visit: Yes Status: Acute Category: Medical Code(s): N20.1 - Calculus of ureter (4) Parkinson disease Current visit: Yes Status: Acute Category: Medical Code(s): G20 - Parkinson's disease
--- NOTE | 2018-11-19 13:10 | Pharmacy Consult Notes ---
- Pharmacy Consult Date: 11/19/18 Time: 13:08 Referring provider: DR. ASTORGA Reason for Consult:: VANCOMYCIN LEVEL AND DOSE CHANGE Allergies and ADEs:: Allergies Allergy/AdvReac Type Severity Reaction Status Date / Time No Known Allergies Allergy Verified 11/08/18 15:02 Home Medications:: Home Medications Medication Instructions Recorded Confirmed Type levothyroxine 75 mcg capsule 75 mcg PO DAILY 06/09/17 11/17/18 History lorazepam 1 mg tablet 0.5 mg PO DAILY 06/09/17 11/17/18 History pravastatin 80 mg tablet 80 mg PO QHS 06/09/17 11/17/18 History haloperidol 5 mg tablet 2.5 mg PO BID 28 Days #56 tab 07/11/18 11/18/18 History oxcarbazepine 600 mg tablet 600 mg PO BID 28 Days #56 tab 07/11/18 11/17/18 History sertraline 100 mg tablet 100 mg PO DAILY 28 Days #28 tab 07/11/18 11/17/18 History LORazepam [Lorazepam 1mg Tablet] 1 mg PO HS 11/13/18 11/17/18 History risperiDONE [Risperdal 1mg Tablet] 4 mg PO BID 11/13/18 11/17/18 History Thiamine HCl [Vitamin B-1] 100 mg PO DAILY 11/17/18 11/17/18 History Acetaminophen 650 mg PO Q4-6H PRN 11/18/18 11/18/18 History risperiDONE [Risperidone] 0.5 mg PO 1200 11/18/18 11/18/18 History Height: 1.75 m Weight: 68.549 kg Laboratory Results:: Laboratory Results - last 24 hr 11/17/18 17:00: Urine Color Dark yellow, Urine Appearance Clear, Urine pH 6.5, Ur Specific [place] 1.025, Urine Protein Trace, Urine Glucose (UA) Negative, Urine Ketones Negative, Urine Blood 3+, Urine Nitrate Negative, Urine Bilirubin Negative, Urine Urobilinogen 2.0, Ur Leukocyte Esterase Negative, Urine RBC 50- 100, Urine WBC Occasional, Ur Squamous Epith Cells Occasional, Urine Bacteria Trace 11/18/18 05:25: Total Counted 100, Neutrophils % (Manual) 88 H, Band Neutrophils % 2.0, Lymphocytes % (Manual) 4 L, Monocytes % (Manual) 3, Metamyelocytes % 3.0 H, Platelet Estimate Normal, Hypochromasia 2+ 11/19/18 11:02: Vancomycin Trough 9.2 L Medical History: Reports:: Hyperlipidemia, Hypertension Denies:: Cancer, Diabetes Mellitus Type 1, Diabetes Mellitus Type 2, MRSA Assessment and Plan (1) Hypothyroidism Current visit: Yes Status: Acute Qualifiers: Hypothyroidism type: acquired Qualified Code(s): E03.9 - Hypothyroidism, unspecified Category: Medical Code(s): E03.9 - Hypothyroidism, unspecified (2) Healthcare-associated pneumonia Current visit: Yes Status: Acute Category: Medical Code(s): J18.9 - Pneumonia, unspecified organism (3) Ureteral calculus Current visit: Yes Status: Acute Category: Medical Code(s): N20.1 - Calculus of ureter (4) Parkinson disease Current visit: Yes Status: Acute Category: Medical Code(s): G20 - Parkinson's disease - Assessment and plan all Dx Assessment and Plan for all problems:: BASED ON PATIENT'S VANCOMYCIN TROUGH OF 9.2 MCG/ML, RECOMMEND CHANGING VANCOMYCIN TO 1250 MG Q8H FROM 1500 MG Q12H. PHARMACY WILL FOLLOW DAILY AND ADJUST APPROPRIATE. DRISS MAYORGA, PHARMD
--- NOTE | 2018-11-20 08:29 | Progress Note ---
Internal Medicine - PN: Subj *Date: 11/20/18 *Time: 08:27 Interval history: pt doing ok this am -no new issues reported Exam Vital signs and Labs for Last 24 Hours: Temp Pulse Resp BP Pulse Ox 98.1 F 72 18 151/79 H 97 11/20/18 07:26 11/20/18 07:26 11/20/18 07:26 11/20/18 07:26 11/20/18 07:26 Laboratory Results - last 24 hr 11/19/18 11:02: Vancomycin Trough 9.2 L I & O for Last 24 hours: Intake & Output 11/17/18 11/18/18 11/19/18 11/20/18 11:59 11:59 11:59 11:59 Intake Total 952 / 952 1727 / 1727 3101 / 3101 Output Total 850 / 850 2440 / 2440 3600 / 3600 Balance 102 / 102 -713 / -713 -499 / -499 Weight 151 lb 151 lb 2 oz 153 lb 5 oz Microbiology Reports for the Last 24 Hours: Microbiology 11/17/18 17:00 Blood Blood Culture - Preliminary Staphylococcus haemolyticus 11/17/18 17:00 Blood Blood Culture - Preliminary NO GROWTH AFTER 48 HOURS 11/17/18 17:00 Urine,Catheterized Urine Culture - Preliminary NO GROWTH AFTER 24 HOURS - Constitutional no acute distress - *Routine HEENT Exam Head: Present: normocephalic Eye: Present: EOMI, PERRL ENT: Present: mucous membranes dry - *Routine Neck Exam Absent: JVD - *Routine Respiratory Exam Present: decreased breath sounds - *Routine Cardiovascular Exam Present: RRR, murmur - *Routine Abdominal Exam Present: soft - *Routine Extremities Exam Absent: calf tenderness - *Routine Skin Exam Present: intact - *Routine Neurological Exam Present: alert, CN II-XII intact - Routine Psychiatric Exam Present: normal affect Assessment and Plan (1) Hypothyroidism Current visit: Yes Status: Acute Qualifiers: Hypothyroidism type: acquired Qualified Code(s): E03.9 - Hypothyroidism, unspecified Category: Medical Code(s): E03.9 - Hypothyroidism, unspecified (2) Healthcare-associated pneumonia Current visit: Yes Status: Acute Category: Medical Code(s): J18.9 - Pneumonia, unspecified organism (3) Ureteral calculus Current visit: Yes Status: Acute Category: Medical Code(s): N20.1 - Calculus of ureter (4) Parkinson disease Current visit: Yes Status: Acute Category: Medical Code(s): G20 - Parkinson's disease
[2018-11-20 08:59] LABS: Basophils % 0.2 % (0.1-2.0); Eosinophils # 0.1 K/mm3 (0.0-0.4); Eosinophils % 0.5 % (0.1-12.0); Hematocrit 37.3 % (42.0-52.0); Hemoglobin 12.1 g/dL (14.1-18.0); Lymphocytes # 0.5 K/mm3 (0.7-4.5); Lymphocytes % 3.5 % (10-50); Mean Corpuscular HGB Conc 32.5 g/dL (31.8-35.4); Mean Corpuscular Volume 92.9 fl (80-94); Mean Platelet Volume 6.1 fl (7.4-10.4); Monocytes % 7.2 % (1.7-9.3); Neutrophils # 12.3 K/mm3 (1.8-7.8); Neutrophils % 88.6 % (37.0-80.0); Platelet Count 370 K/mm3 (142-424); Red Blood Count 4.02 M/mm3 (4.60-6.20); Red Cell Distribution Width 14.4 % (11.5-17.5); White Blood Count 13.9 K/mm3 (4.8-10.8)
[2018-11-20 09:04] LABS: Anion Gap 11.3 mEq/L (5-15); Calcium 8.7 mg/dL (8.5-10.1)
[2018-11-20 10:38] LABS: Lymphocytes % 2 % (10-50); Monocytes % 4 % (2-9); Neutrophils % 93 % (42-76); RBC Morphology Normal; Total Cells Counted 100
--- NOTE | 2018-11-21 08:30 | Pharmacy Consult Notes ---
- Pharmacy Consult Date: 11/21/18 Time: 08:29 Referring provider: DR. ASTORGA Reason for Consult:: VANCOMYCIN TROUGH LEVEL Allergies and ADEs:: Allergies Allergy/AdvReac Type Severity Reaction Status Date / Time No Known Allergies Allergy Verified 11/08/18 15:02 Home Medications:: Home Medications Medication Instructions Recorded Confirmed Type levothyroxine 75 mcg capsule 75 mcg PO DAILY 06/09/17 11/17/18 History lorazepam 1 mg tablet 0.5 mg PO DAILY 06/09/17 11/17/18 History pravastatin 80 mg tablet 80 mg PO QHS 06/09/17 11/17/18 History haloperidol 5 mg tablet 2.5 mg PO BID 28 Days #56 tab 07/11/18 11/18/18 History oxcarbazepine 600 mg tablet 600 mg PO BID 28 Days #56 tab 07/11/18 11/17/18 History sertraline 100 mg tablet 100 mg PO DAILY 28 Days #28 tab 07/11/18 11/17/18 His tory LORazepam [Lorazepam 1mg Tablet] 1 mg PO HS 11/13/18 11/17/18 History risperiDONE [Risperdal 1mg Tablet] 4 mg PO BID 11/13/18 11/17/18 History Thiamine HCl [Vitamin B-1] 100 mg PO DAILY 11/17/18 11/17/18 History Acetaminophen 650 mg PO Q4-6H PRN 11/18/18 11/18/18 History risperiDONE [Risperidone] 0.5 mg PO 1200 11/18/18 11/18/18 History Height: 1.75 m Weight: 69.598 kg Laboratory Results:: Laboratory Results - last 24 hr 11/20/18 08:51: WBC 13.9 H, RBC 4.02 L, Hgb 12.1 L, Hct 37.3 L, MCV 92.9, MCH 30.2, MCHC 32.5, RDW 14.4, Plt Count 370, MPV 6.1 L, Neut % (Auto) 88.6 H, Lymph % (Auto) 3.5 L, [place] % (Auto) 7.2, Eos % (Auto) 0.5, Baso % (Auto) 0.2, Neut # (Auto) 12.3 H, Lymph # (Auto) 0.5 L, [place] # (Auto) 1.0, Eos # (Auto) 0.1, Baso # (Auto) 0.0, Total Counted 100, Neutrophils % (Manual) 93 H, Band Neutrophils % 1.0, Lymphocytes % (Manual) 2 L, Monocytes % (Manual) 4, Platelet Estimate Normal, RBC Morphology Normal 11/20/18 08:51: Sodium 131 L, Potassium 4.3, Chloride 97 L, Carbon Dioxide 27, Anion Gap 11.3, BUN 11 D, Creatinine 0.78 D, Estimated Creat Clear 72, Estimated GFR 100, Est GFR ( Amer) 121 D, Glucose 98, Calcium 8.7 11/20/18 20:25: Vancomycin Trough 27.8 H Medical History: Reports:: Hyperlipidemia, Hypertension Denies:: Cancer, Diabetes Mellitus Type 1, Diabetes Mellitus Type 2, MRSA Assessment and Plan (1) Hypothyroidism Current visit: Yes Status: Acute Qualifiers: Hypothyroidism type: acquired Qualified Code(s): E03.9 - Hypothyroidism, unspecified Category: Medical Code(s): E03.9 - Hypothyroidism, unspecified (2) Healthcare-associated pneumonia Current visit: Yes Status: Acute Category: Medical Code(s): J18.9 - Pneumonia, unspecified organism (3) Ureteral calculus Current visit: Yes Status: Acute Category: Medical Code(s): N20.1 - Calculus of ureter (4) Parkinson disease Current visit: Yes Status: Acute Category: Medical Code(s): G20 - Parkinson's disease - Assessment and plan all Dx Assessment and Plan for all problems:: BASED ON VANCOMYCIN TROUGH LEVEL LAST NIGHT AND PATIENT FACTORS, RECOMMEND CHANGING DOSE AND INTERVAL TO VANCOMYCIN 1500 MG IV Q12H. PHARMACY WILL CONTINUE TO MONITOR DAILY AND ADJUST APPROPRIATE.
--- NOTE | 2018-11-21 08:48 | Discharge Summary ---
General - General Admission date:: 11/18/18 Discharge date: 11/21/18 HPI HPI: this wm who resides at [facility] was [facility] Patient has speech that is very difficult to understand, making history taking difficult. Able to answer yes/no questions without difficulty. He indicates to me that he does not have any pain. He denies any specific complaint. He was sent here because he is weak. Decrease in functioning, unable to feed himself today. The patient is noted to have a cough in the emergency room. He denies trouble breathing. He knows he is in the hospital. He states he does not know the year. Noted to have been seen here 4 days ago for a fall. Had a CAT scan of his head as well as his entire spine and an extensive work-up. pt was admitted with [facility] Hospital Course Hospital Course: pt has slowly improved with ivf and abx - pt mental status improved to near baseline and he has renata diet and stable labs - cxr was consistent with pneumonia - pt had positive staph blood culture - he has responded to abx and will be d/c to finish course at [facility] Objective Vital signs: Temp Pulse Resp BP Pulse Ox 97.5 F L 99 H 16 170/82 H 91 L 11/21/18 08:00 11/21/18 08:00 11/21/18 08:00 11/21/18 08:00 11/21/18 08:00 no acute distress - *Routine HEENT Exam Head: Present: normocephalic Eye: Present: EOMI, PERRL. Absent: conjunctival icterus ENT: Present: mucous membranes dry - *Routine Neck Exam Absent: JVD - *Routine Respiratory Exam Present: decreased breath sounds. Absent: respiratory distress - *Routine Cardiovascular Exam Present: RRR, murmur, S4 - *Routine Abdominal Exam Present: soft - *Routine Extremities Exam Absent: calf tenderness - *Routine Skin Exam Present: intact - *Routine Neurological Exam Present: alert, CN II-XII intact - Routine Psychiatric Exam Present: unable to assess Results Labs on day of discharge: Labs from last 24 hours 11/20/18 11/20/18 11/20/18 20:25 08:51 08:51 WBC 13.9 H RBC 4.02 L Hgb 12.1 L Hct 37.3 L MCV 92.9 MCH 30.2 MCHC 32.5 RDW 14.4 Plt Count 370 MPV 6.1 L Neut % (Auto) 88.6 H Lymph % (Auto) 3.5 L [place] % (Auto) 7.2 Eos % (Auto) 0.5 Baso % (Auto) 0.2 Neut # (Auto) 12.3 H Lymph # (Auto) 0.5 L [place] # (Auto) 1.0 Eos # (Auto) 0.1 Baso # (Auto) 0.0 Total Counted 100 Neutrophils % (Manual) 93 H Band Neutrophils % 1.0 Lymphocytes % (Manual) 2 L Monocytes % (Manual) 4 Platelet Estimate Normal RBC Morphology Normal Sodium 131 L Potassium 4.3 Chloride 97 L Carbon Dioxide 27 Anion Gap 11.3 BUN 11 D Creatinine 0.78 D Estimated Creat Clear 72 Estimated GFR 100 Est GFR ( Amer) 121 D Glucose 98 Calcium 8.7 Vancomycin Trough 27.8 H Preliminary micro results at discharge 11/17/18 17:00 Blood Culture - Preliminary Blood Staphylococcus haemolyticus 11/17/18 17:00 Blood Culture - Preliminary Blood NO GROWTH AFTER 48 HOURS DS: Diagnosis - Discharge Diagnosis (1) Hypothyroidism Status: Acute (2) Healthcare-associated pneumonia Status: Acute (3) Ureteral calculus Status: Acute (4) Parkinson disease Status: Acute (5) Bacteremia due to Staphylococcus Status: Acute Discharge Plan - Patient Discharge Instructions ACTIVITY: Continue current activity DIET: continue same diet Patient Instructions: Pneumonia-Adult, DI for Pneumonia -- Adult, DI for Multiple Drug-resistant Organism (MDRO) Infection - Follow up Plan Disposition: er [facility] Home Medications: Home Medications Medication Instructions Recorded Confirmed Type levothyroxine 75 mcg capsule 75 mcg PO DAILY 06/09/17 11/17/18 History lorazepam 1 mg tablet 0.5 mg PO DAILY 06/09/17 11/17/18 History pravastatin 80 mg tablet 80 mg PO QHS 06/09/17 11/17/18 History haloperidol 5 mg tablet 2.5 mg PO BID 28 Days #56 tab 07/11/18 11/18/18 History oxcarbazepine 600 mg tablet 600 mg PO BID 28 Days #56 tab 07/11/18 11/17/18 History sertraline 100 mg tablet 100 mg PO DAILY 28 Days #28 tab 07/11/18 11/17/18 Hist ory LORazepam [Lorazepam 1mg Tablet] 1 mg PO HS 11/13/18 11/17/18 History risperiDONE [Risperdal 1mg Tablet] 4 mg PO BID 11/13/18 11/17/18 History Thiamine HCl [Vitamin B-1] 100 mg PO DAILY 11/17/18 11/17/18 History Acetaminophen 650 mg PO Q4-6H PRN 11/18/18 11/18/18 History risperiDONE [Risperidone] 0.5 mg PO 1200 11/18/18 11/18/18 History levoFLOXacin [Levaquin 750mg 750 mg PO 1700 #7 tab 11/21/18 Rx tablet] Prescriptions/Medication Reconciliation: New levoFLOXacin [Levaquin 750mg tablet] 750 mg PO 1700 #7 tab Continued levothyroxine 75 mcg capsule 75 mcg PO DAILY lorazepam 1 mg tablet 0.5 mg PO DAILY pravastatin 80 mg tablet 80 mg PO QHS oxcarbazepine 600 mg tablet 600 mg PO BID 28 Days #56 tab sertraline 100 mg tablet 100 mg PO DAILY 28 Days #28 tab haloperidol 5 mg tablet 2.5 mg PO BID 28 Days #56 tab LORazepam [Lorazepam 1mg Tablet] 1 mg PO HS risperiDONE [Risperdal 1mg Tablet] 4 mg PO BID Thiamine HCl [Vitamin B-1] 100 mg PO DAILY Acetaminophen 650 mg PO Q4-6H PRN PRN Reason: PAIN/FEVER risperiDONE [Risperidone] 0.5 mg PO 1200 - Problem Reconciliation Problems Reviewed?: Yes
--- NOTE | 2018-11-21 09:21 | Progress Note ---
Internal Medicine - PN: Subj *Date: 11/21/18 *Time: 09:21 Exam Vital signs and Labs for Last 24 Hours: Temp Pulse Resp BP Pulse Ox 97.5 F L 99 H 16 170/82 H 91 L 11/21/18 08:00 11/21/18 08:00 11/21/18 08:00 11/21/18 08:00 11/21/18 08:00 Laboratory Results - last 24 hr 11/20/18 08:51: Total Counted 100, Neutrophils % (Manual) 93 H, Band Neutrophils % 1.0, Lymphocytes % (Manual) 2 L, Monocytes % (Manual) 4, Platelet Estimate Normal, RBC Morphology Normal 11/20/18 08:51: Sodium 131 L, Potassium 4.3, Chloride 97 L, Carbon Dioxide 27, Anion Gap 11.3, BUN 11 D, Creatinine 0.78 D, Estimated Creat Clear 72, Estimated GFR 100, Est GFR ( Amer) 121 D, Glucose 98, Calcium 8.7 11/20/18 20:25: Vancomycin Trough 27.8 H I & O for Last 24 hours: Intake & Output 11/18/18 11/19/18 11/20/18 11/21/18 23:59 23:59 23:59 23:59 Intake Total 2469 / 2469 1080 / 1080 3786 / 3786 1503 / 1503 Output Total 1190 / 1190 3250 / 3250 4100 / 4100 2850 / 2850 Balance 1279 / 1279 -2170 / -2170 -314 / -314 -1347 / -1347 Weight 68.549 kg 69.541 kg 69.598 kg Microbiology Reports for the Last 24 Hours: Microbiology 11/17/18 17:00 Urine,Catheterized Urine Culture - Final NO GROWTH AFTER 48 HOURS 11/17/18 17:00 Blood Blood Culture - Preliminary Staphylococcus haemolyticus Assessment and Plan (1) Hypothyroidism Current visit: Yes Status: Acute Qualifiers: Hypothyroidism type: acquired Qualified Code(s): E03.9 - Hypothyroidism, unspecified Category: Medical Code(s): E03.9 - Hypothyroidism, unspecified (2) Healthcare-associated pneumonia Current visit: Yes Status: Acute Category: Medical Code(s): J18.9 - Pneumonia, unspecified organism (3) Ureteral calculus Current visit: Yes Status: Acute Category: Medical Code(s): N20.1 - Calculus of ureter (4) Parkinson disease Current visit: Yes Status: Acute Category: Medical Code(s): G20 - Parkinson's disease (5) Bacteremia due to Staphylococcus Current visit: Yes Status: Acute Category: Medical Code(s): R78.81 - Abisai teremia The patient's infection will respond to the chosen ABx?: Yes Is the patient receiving the right drug, dose, and route?: Yes Could a more targeted ABx be ordered?: No (HOME ON PO LEVAQUIN)
== END 2018-11-21 12:13 | DRG 194 ==
LOC: ER 16:27 → ICU 16:27 → 2ND 11-18 16:54
PROVIDERS: ADMIT Emergency Medicine; ATTEND Emergency Medicine
CPT/HCPCS: 36415; 71010; 71045; 74176; 80048; 80053; 80202; 81001; 83605; 84443; 84484; 85007; 85025; 87040; 87077; 87086; 87186; 93005; 96365; 96367; 99285; G0378; J1956; J3370

== ENCOUNTER → 2018-12-16 09:42 | Outpatient (CLI) | payer MEDICARE, MEDICAID, SELFPAY ==
--- NOTE | 2018-12-16 09:43 | FL_ITS ---
PROCEDURE: FL BARIUM SWALLOW CLINICAL INDICATION: diff. swallowing COMPARISON: No exams were available for comparison TECHNIQUE: The patient could not stand upright and had to be placed in the modified barium swallow chair for the exam. FLUOROSCOPY TIME: 1 minutes 44 seconds FINDINGS: The technologist had to hold the cup of barium and essentially feeding the patient. The overall swallowing mechanism was grossly normal. Spot films of the cervical esophagus especially in the lateral projection shows multilevel degenerate changes of the cervical spine most prominent at the C5-6 and C6-7 levels causing minimal posterior indentation of the barium column while swallowing. 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 These 2 findings combined could certainly be a cause for symptoms of dysphagia primarily to solid foods. Otherwise overall esophageal motility was grossly normal. The gastroesophageal junction was right at the lower edge of the field of view. There was a small sliding hiatal hernia identified but I cannot adequately evaluate for reflux as the patient was not put in the supine position during the exam. 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 Milo Nicholson MD 12/16/2018 10:[address] Milo Nicholson MD in [place] 12/16/2018 10:52
== END ==
PROVIDERS: PCP Emergency Medicine; Visit Provider Otolaryngology
DX: R13.10 Dysphagia, unspecified (principal)
CPT/HCPCS: 74220

== ENCOUNTER → 2019-01-11 12:47 | Outpatient (CLI) | payer MEDICARE, MEDICAID, SELFPAY ==
--- NOTE | 2019-01-11 13:22 | FL_ITS ---
PROCEDURE: FL BARIUM SWALLOW MODIFIED CLINICAL INDICATION: DYSPHAGIA COMPARISON: No exams were available for comparison FINDINGS: Lateral cine images revealed aspiration with the thin liquids related partially from fatigue with cough response. The degree of aspiration is medium. Also liquids passed through the oral cavity into the vallecular prematurely. Pharyngeal phase showed the swallowing response was mildly delayed. There is moderate para minute the base of the tongue. The epiglottic coverage shows mild impairment. There is also mild impairment with clearing of the retention of liquids in the vallecular. Also noted is some penetration with the honey thickened liquids related to fatigue. IMPRESSION: Neurogenic dysphasia as discussed above. Dictated by: Maurice Lam 01/11/2019 15:00 Electronically signed by Maurice Lam in [place] 01/11/2019 15:00
--- NOTE | 2019-01-11 13:53 | HMH.SLMBS2 ---
Speech & Language Evaluation Speech/Language Mod Barium Swallow Start: 01/11/19 13:45 Freq: once Status: Complete Protocol: Document 01/11/19 13:45 MARIZA (Rec: 01/11/19 13:53 MARIZA [id number]) MBS Recommendations Diet Dietary Recommendations Pureed,Pudding Liquids Treatment/Strategies Strategy/Precaution Recommend Sitting Upright (90 deg) Referrals/Other Other Recommendations Follow up with wash house worker staff at [facility] for treatment recommendations based on MBS findings. Mod Barium Swallow Impressions Summary and Impressions Oral Phase Impression Mild Impairment Oral Phase Summary insufficient dentition Pharyngeal Phase Impression Severe Impairment Pharyngeal Phase Summary aspiration of thin liquids and penetration of HTL with fatigue Speech/Language MBS Assessment/Goals/Plan Assessment Date of Evaluation: 01/11/19 Evaluation Type Initial Certification Assessment/Problems Coughing when eating/drinking Does Patient Qualify for Service Yes Qualify/Failure Comment Will follow up with PAPER MACHINE SUPERVISOR staff at [facility] Recommendations PHYSICIAN CERTIFICATION: The specified therapy services are required, authorized, and reviewed every 30 days. Diet Recommendations Puree Liquid Type Recommendations Pudding Consistency SL Swallow Guidelines High aspiration risk Crush Meds Small pills w/applesauce Dysphagia Swallow Precautions/Strategies Sitting Upright (90 deg) Plan Pt/Guardian verbally ack understanding Yes of dx/prognosis/goals G -code Required Yes G-CODES ST Current Status [id number] ST Current Status Modifier CK-At least 40% but less than 60% impaired, limited or restricted ST Goal Status [id number] ST Goal Status Modifier CK-At least 40% but less than 60% impaired, limited or restricted Education Instructions provided Patient nursing staff informed of MBS findings. Clinical note written and sent with patient back to SNF. Pt/Caregiver able to recall information Reinforcement needed Reinforcement needed Yes Mod Barium Swallow Setup Exam Setup Radiologist Maurice Lam Level of Consciousness Awake,Alert,Follows Commands Position (degrees) 90 Mod Barium Swallow-Lat View Textures Lateral View Food Presentation Thin Liquid via Cup,Thin Liquid via Straw,[place] Liquid
== END ==
PROVIDERS: Visit Provider Emergency Medicine
DX: R13.10 Dysphagia, unspecified (principal)
CPT/HCPCS: 70371; 92611

== ENCOUNTER 2019-02-16 20:34 | Inpatient (IN) ==
[2019-02-16 21:01] LABS: ABG Base Excess 5.8 mmol/L (-2.4-2.3); ABG HCO3 30.9 mmhg (22.0-26.0); ABG Oxygen Saturation 94 % (90-100); ABG PH 7.38 mmol/L (7.35-7.45); ABG PO2 74.3 mmhg (80-100); ABG TCO2 32.6 mmhg (23-27)
[2019-02-16 21:03] LABS: Allen's Test ACCEPTABLE; Oxygen 100 %
[2019-02-16 21:04] LABS: Hematocrit 37.9 % (42.0-52.0); Hemoglobin 12.2 g/dL (14.1-18.0); Lymphocytes # 0.4 K/mm3 (0.7-4.5); Lymphocytes % 1.5 % (10-50); Mean Corpuscular HGB Conc 32.1 g/dL (31.8-35.4); Mean Corpuscular Volume 94.2 fl (80-94); Mean Platelet Volume 7.2 fl (7.4-10.4); Monocytes # 0.9 K/mm3 (0.1-1.0); Monocytes % 3.5 % (1.7-9.3); Neutrophils # 25.4 K/mm3 (1.8-7.8); Platelet Count 499 K/mm3 (142-424); Red Blood Count 4.02 M/mm3 (4.60-6.20); Red Cell Distribution Width 13.9 % (11.5-17.5); White Blood Count 26.8 K/mm3 (4.8-10.8)
[2019-02-16 21:06] LABS: ABG PCO2 53.6 mmhg (35.0-45.0)
[2019-02-16 21:25] LABS: Microscopic, Urine URINE MICROSCOPIC (MICROSCOPIC)
[2019-02-16 21:26] LABS: Blood, Urine TRACE-L (Negative); Color,Urine YELLOW (Yellow); Glucose,Urine (UA) Negative (Negative); Ketones,Urine TRACE (Negative); Leukocyte Esterase,Urine Negative (Negative); Protein,Urine TRACE (Negative); Specific Gravity, Urine 1.025 (1.005-1.030)
--- NOTE | 2019-02-16 21:30 | Emergency Department Note ---
ED Disposition Clinical Impression: Healthcare-associated pneumonia, Severe sepsis, Renal insufficiency, Acute exacerbation of chronic obstructive airways disease Respiratory failure with hypercapnia Qualifiers: Chronicity: acute on chronic Qualified Code(s): J96.22 - Acute and chronic respiratory failure with hypercapnia Disposition: Admitted As Inpatient Condition on Discharge: Serious - Critical Care Critical Care Time: No Attestation: On 02/16/19, the high probability of a clinically significant, sudden or life threatening deterioration of the following system(s) required my full and direct attention, intervention and personal management. The time I documented below is in addition to time spent performing reported procedures but includes the following listed in this critical care notation. Medical Decision Making - Medical Records Medical records reviewed: Yes: I reviewed the patient's medical records. - Raul Inquiry Pt receiving controlled substance: No Vital Signs: 02/16/19 20:34 02/16/19 20:36 02/16/19 20:38 Temperature Temperature Source Pulse Rate [Right Brachial] 125 H 125 H Respiratory Rate 22 22 Blood Pressure [Right Arm] 110/56 L 110/56 L Blood Pressure Mean [Right Arm] 74 74 Blood Pressure Source [Right Arm] Automatic Cuff Automatic Cuff Blood Pressure Position [Right Arm] Sitting Sitting 02 Sat by Pulse Oximetry 84 L 84 L 84 L Oxygen Delivery Method Nasal Cannula Nasal Cannula Nasal Cannula Oxygen Flow Rate (LPM) 5 5 5 02/16/19 21:04 02/16/19 22:17 02/16/19 22:20 Temperature 101.0 F H Temperature Source Rectal Pulse Rate [Right Brachial] 122 H 108 H 107 H Respiratory Rate 22 24 17 Blood Pressure [Right Arm] 98/50 L 112/58 L 112/50 L Blood Pressure Mean [Right Arm] 66 76 70 Blood Pressure Source [Right Arm] Automatic Cuff Manual Cuff/ Doppler Blood Pressure Position [Right Arm] Sitting Sitting 02 Sat by Pulse Oximetry 93 L 96 89 L Oxygen Delivery Method Non-Rebreather Non-Rebreather Non-Rebreather Oxygen Flow Rate (LPM) 12 - Lab Data Lab results reviewed: Yes: I reviewed the patient's lab results. Lab Results 02/16/19 20:47: Specimen Source Right radial, O2 % 100, ABG pH 7.38, ABG pCO2 53.6 H, ABG pO2 74.3 L, ABG HCO3 30.9 H, ABG Total CO2 32.6 H, ABG O2 Saturation 94, ABG Base Excess 5.8 H, Melecio Test Acceptable 02/16/19 20:50: WBC 26.8 H*, RBC 4.02 L, Hgb 12.2 L, Hct 37.9 L, MCV 94.2 H, MCH 30.3, MCHC 32.1, RDW 13.9, Plt Count 499 H, MPV 7.2 L, Neut % (Auto) 95.0 H, Lymph % (Auto) 1.5 L, [place] % (Auto) 3.5, Eos % (Auto) 0.0 L, Baso % (Auto) 0.0 L , Neut # (Auto) 25.4 H, Lymph # (Auto) 0.4 L, [place] # (Auto) 0.9, Eos # (Auto) 0.0, Baso # (Auto) 0.0, Total Counted 100, Neutrophils % (Manual) 94 H, Lymphocytes % (Manual) 6 L, Platelet Estimate Normal, Anisocytosis 1+, Stomatocytes 1+ 02/16/19 20:50: Sodium 144, Potassium 3.0 L, Chloride 103, Carbon Dioxide 31, An ion Gap 13.0, BUN 23 H, Creatinine 0.62 L, Estimated Creat Clear 69, Estimated GFR 130, Est GFR ( Amer) 158, Glucose 110 H, Calcium 9.1, Total Bilirubin 0.4, AST 11 L, ALT 30, Alkaline Phosphatase 123 H, Total Protein 6.8, Albumin 2.0 L, Globulin 4.8 H, Albumin/Globulin Ratio 0.4 L 02/16/19 20:50: Lactate 1.1 02/16/19 21:20: Urine Color Yellow, Urine Appearance Turbid, Urine pH 6.0, Ur Specific [place] 1.025, Urine Protein Trace, Urine Glucose (UA) Negative, Urine Ketones Trace, Urine Blood Trace-l, Urine Nitrate Negative, Urine Bilirubin Negative, Urine Urobilinogen 1.0, Ur Leukocyte Esterase Negative, Urine WBC 3-5, Ur Squamous Epith Cells Occasional, Amorphous Sediment Trace, Urine Bacteria Trace Result diagrams: 02/16/19 20:50 02/16/19 20:50 Orders (Tests/Meds): ED MEDICATIONS Generic Name Dose Route Start Last Admin Trade Name Freq PRN Reason Stop Dose Admin Vancomycin HCl 1,250 mg/ 250 mls @ 125 mls/hr 02/16/19 21:41 02/16/19 22:21 Sodium Chloride IV 02/16/19 23:40 125 mls/hr ONCE ONE Administration Piperacillin Sod/Tazobactam 100 mls @ 200 mls/hr 02/16/19 21:50 02/16/19 21:50 Sod 4.5 gm/ Sodium Chloride IV 03/02/19 21:49 200 mls/hr Q6H ELVIS Administration Protocol Sodium Chloride 1,000 mls @ 999 mls/hr 02/16/19 22:15 02/16/19 22:06 Sod Chlor 0.9% 1000ml Bag IV 02/16/19 23:15 999 mls/hr .Q1H1M ELVIS Administration Vancomycin HCl 1,000 mg/ 250 mls @ 125 mls/hr 02/17/19 00:30 Sodium Chloride IV 03/03/19 00:29 Q12H ELVIS Discontinued Medications Generic Name Dose Route Start Last Admin Trade Name Freq PRN Reason Stop Dose Admin Acetaminophen 325 mg 02/16/19 21:11 02/16/19 21:12 Tylenol 325mg Suppository RC 02/16/19 21:12 325 mg ONCE ONE Administration Methylprednisolone Sodium Succinate 125 mg 02/16/19 21:10 02/16/19 21:12 Solu-Medrol 125mg/2ml Vial IV 02/16/19 21:11 125 mg ONCE ONE Administration ORDERS Category Date Time Status XR chest portable Stat Exams 02/16/19 20:46 Taken Blood Culture Stat Micro 02/16/19 20:50 Received - Radiology Data #1 Image(s): Chest Image Reviewed: Yes I reviewed the patient's radiology image Preliminary Findings: Abnormal (rt lower lobe ) - ECG Data Tracing #1 Arrhythmias present: sinus tach Ischemic changes: non-specific ST-T wave changes Resp/SOB HPI - General Chief Complaint: Shortness of Breath/Dyspnea Stated Complaint: SOA Time Seen by Provider: 02/16/19 20:35 Mode of Arrival: EMS Source of Information: Patient, EMS, Medical Record Limitations: Altered Mental Status Description of Symptoms (Recalled from ER Triage Doc. by RN): EMS was called after pts o2 stat was reported in the 70s and a temp of 103 - History of Present Illness pt sent from [facility] for eval of sob and change in mental status with assoc fever- pt unable to give hx at this time MD Complaint: shortness of breath Onset (ago): hour(s) Context: choking/aspiration Severity: severe Consistency/Duration: constant Known history of: COPD, recurrent pneumonia, aspiration pneumonia Associated symptoms: denies other symptoms Treatment prior to arrival: none - Related Data Home oxygen amount: 3 liters Home Medications Medication Instructions Recorded Confirmed levothyroxine 75 mcg capsule 75 mcg PO DAILY 06/09/17 02/16/19 lorazepam 1 mg tablet 0.5 mg PO DAILY 06/09/17 02/16/19 pravastatin 80 mg tablet 80 mg PO QHS 06/09/17 02/16/19 haloperidol 5 mg tablet 2.5 mg PO BID 28 Days #56 tab 07/11/18 02/16/19 oxcarbazepine 600 mg tablet 600 mg PO BID 28 Days #56 tab 07/11/18 02/16/19 sertraline 100 mg tablet 100 mg PO DAILY 28 Days #28 tab 07/11/18 02/16/19 LORazepam [Lorazepam 1mg Tablet] 1 mg PO HS 11/13/18 02/16/19 risperiDONE [Risperdal 1mg Tablet] 4 mg PO BID 11/13/18 02/16/19 Thiamine HCl [Vitamin B-1] 100 mg PO DAILY 11/17/18 02/16/19 Acetaminophen 650 mg PO Q4-6H PRN 11/18/18 02/16/19 risperiDONE [Risperidone] 0.5 mg PO 1200 11/18/18 02/16/19 Miconazole Nitrate [Lotrimin AF] 1 spray TOPICAL DAILY 12/06/18 02/16/19 Olopatadine HCl [Pataday] 1 drp OPHTHALMIC (EYE) DAILY 12/06/18 02/16/19 levoFLOXacin [Levaquin 750mg 750 mg PO 1700 12/06/18 02/16/19 tablet] Previous Rx's Medication Instructions Recorded miconazole nitrate 2 % topical 1 applic TOPICAL BID PRN #30 g 11/22/18 cream Allergies Allergy/AdvReac Type Severity Reaction Status Date / Time No Known Allergies Allergy Verified 02/16/19 20:53 [facility] History - Hepatitis A Screen Drug use history?: No High risk sexual behaviors?: No History of sexually transmitted infection?: No Currently employed?: No Childcare worker?: No Do you have indoor plumbing?: Yes Do you have electricity?: Yes Attestation statement:: This patient has been screened for Hepatitis A risk factors. I have reviewed the patient's past medical history: Yes Medical History: Reports:: Hyperlipidemia, Hypertension Denies:: Cancer, Diabetes Mellitus Type 1, Diabetes Mellitus Type 2, MRSA Other Medical History: Reports: Thyroid Disease Comment: mood disorder w/ hx of delusions Laterality Cases: Bilateral: Tonsillectomy - Social History Smoking Status: Former smoker Tobacco Type: cigarettes # Packs/Day (cigarettes): 1 Alcohol Intake: never Alcohol Intake Frequency:: other Substance Use Type: denies use Occupational Status: retired Housing: [employer] Family Hx:: Unable to obtain ROS Obtained: Yes unobtainable due to mental status Physical Exam - General General appearance: lethargic, cachectic - Head Head exam: normocephalic - Eye Eye exam: Present: PERRL, EOMI. Absent: scleral icterus - ENT ENT exam: Present: mucous membranes dry - Neck Neck exam: Present: trachea midline - Respiratory Respiratory exam: Present: other (dec bs bilat ). Absent: respiratory distress - Cardiovascular Cardiovascular exam: Present: regular rate, systolic murmur, +S4 - Abdominal Exam Abdominal exam: Present: soft - Extremities Exam Extremities exam: Absent: pedal edema - Neurological Exam Neurological exam: Present: other (no posturing )
[2019-02-16 21:35] LABS: Appearance,Urine Turbid (Clear); Bilirubin,Urine Negative (Negative)
[2019-02-16 21:36] LABS: Amorphous Sediment,Urine Trace /lpf; Bacteria,Urine Trace /lpf; Squamous Epithelial Cell,Urine Occasional #/hpf (0-5)
[2019-02-16 21:39] LABS: Anisocytosis 1+; Lymphocytes % 6 % (10-50); Neutrophils % 94 % (42-76); Stomatocytes 1+; Total Cells Counted 100
[2019-02-16 21:43] LABS: Albumin/Globulin Ratio 0.4 (1.1-1.8); Bilirubin,Total 0.4 mg/dL (0.2-1.0); Calcium 9.1 mg/dL (8.5-10.1); Globulin 4.8 gm/dl (1.3-3.2); Total Protein,Serum 6.8 gm/dL (6.4-8.2)
[2019-02-17 07:05] LABS: Anion Gap 11.3 mEq/L (5-15); Calcium 8.8 mg/dL (8.5-10.1)
[2019-02-17 07:08] LABS: Basophils % 0.1 % (0.1-2.0); Hematocrit 36.5 % (42.0-52.0); Hemoglobin 11.3 g/dL (14.1-18.0); Lymphocytes # 0.2 K/mm3 (0.7-4.5); Lymphocytes % 0.7 % (10-50); Mean Corpuscular Volume 96.9 fl (80-94); Mean Platelet Volume 7.1 fl (7.4-10.4); Monocytes # 0.4 K/mm3 (0.1-1.0); Monocytes % 1.8 % (1.7-9.3); Neutrophils # 23.5 K/mm3 (1.8-7.8); Neutrophils % 97.5 % (37.0-80.0); Platelet Count 476 K/mm3 (142-424); Red Blood Count 3.77 M/mm3 (4.60-6.20); Red Cell Distribution Width 13.8 % (11.5-17.5); White Blood Count 24.1 K/mm3 (4.8-10.8)
--- NOTE | 2019-02-17 07:33 | Pharmacy Consult Notes ---
[facility] Pharmacy VTE Monitoring - Patient Demographics Admission date: 02/16/19 Report Date: 02/17/19 Time: 07:32 Allergies/Adverse Reactions: Patient Allergies No Known Allergies Allergy (Verified 02/17/19 01:10) Height: 1.83 m Weight: 57.181 kg Patient Problems: Current Active Problems Severe sepsis (Acute) Renal insufficiency (Acute) Acute exacerbation of chronic obstructive airways disease (Acute) Respiratory failure with hypercapnia (Acute) Healthcare-associated pneumonia (Acute) - VTE Risk Labs: VTE Related Lab Results Hgb 11.3 g/dL (14.1-18.0) L 02/17/19 06:14 Hct 36.5 % (42.0-52.0) L 02/17/19 06:14 Plt Count 476 K/mm3 (142-424) H 02/17/19 06:14 BUN 22 mg/dL (7-18) H 02/17/19 06:14 Creatinine 0.51 mg/dL (0.70-1.30) L 02/17/19 06:14 Estimated Creat Clear 60 mL/min (50-200) 02/17/19 06:14 Was VTE Risk Assessment Performed: Yes VTE Score: 5 VTE Risk Level: Low Risk Clinical Trial Participant: No - Prophylaxis VTE Prophylaxis Ordered?: Yes Types of VTE Prophylaxis: TEDS Knee High Location of Applied Device: Bilateral Lower Extremeties
[2019-02-17 08:15] LABS: Neutrophils % 93 % (42-76); Total Cells Counted 100
[2019-02-17 08:16] LABS: RBC Morphology Normal
--- NOTE | 2019-02-17 08:49 | Pharmacy Consult Notes ---
- Pharmacy Consult Date: 02/17/19 Time: 08:48 Referring provider: DR. ASTORGA Reason for Consult:: VANCOMYCIN DOSING Allergies and ADEs:: Allergies Allergy/AdvReac Type Severity Reaction Status Date / Time No Known Allergies Allergy Verified 02/17/19 01:10 Home Medications:: Home Medications Medication Instructions Recorded Confirmed Type levothyroxine 75 mcg capsule 75 mcg PO DAILY 06/09/17 02/16/19 History lorazepam 1 mg tablet 0.5 mg PO DAILY 06/09/17 02/16/19 History pravastatin 80 mg tablet 80 mg PO HS 06/09/17 02/17/19 History haloperidol 5 mg tablet 5 mg PO HS 28 Days #56 tab 07/11/18 02/17/19 History oxcarbazepine 600 mg tablet 600 mg PO BID 28 Days #56 tab 07/11/18 02/16/19 History sertraline 100 mg tablet 100 mg PO DAILY 28 Days #28 tab 07/11/18 02/16/19 History LORazepam [Lorazepam 1mg Tablet] 1 mg PO HS 11/13/18 02/16/19 History risperiDONE [Risperdal 1mg Tablet] 4 mg PO BID 11/13/18 02/16/19 History Thiamine HCl [Vitamin B-1] 100 mg PO DAILY 11/17/18 02/16/19 History Acetaminophen 650 mg PO Q4-6H PRN 11/18/18 02/16/19 History risperiDONE [Risperidone] 0.5 mg PO 1200 11/18/18 02/16/19 History miconazole nitrate 2 % topical 1 applic TOPICAL BID PRN #30 g 11/22/18 02/16/19 Rx cream Miconazole Nitrate [Lotrimin AF] 1 spray TOPICAL DAILY 12/06/18 02/16/19 History Olopatadine HCl [Pataday] 1 drp OPHTHALMIC (EYE) DAILY 12/06/18 02/16/19 History levoFLOXacin [Levaquin 750mg 750 mg PO 1700 12/06/18 02/16/19 History tablet] Ascorbic Acid [Vitamin C] 1,000 mg PO DAILY 02/17/19 02/17/19 History Lactulose [Lactulose 10gm/15ml 30 ml PO DAILYP PRN 02/17/19 02/17/19 History Oral Soln] Height: 1.83 m Weight: 57.181 kg Laboratory Results:: Laboratory Results - last 24 hr 02/16/19 20:47: Specimen Source Right radial, O2 % 100, ABG pH 7.38, ABG pCO2 53.6 H, ABG pO2 74.3 L, ABG HCO3 30.9 H, ABG Total CO2 32.6 H, ABG O2 Saturation 94, ABG Base Excess 5.8 H, Melecio Test Acceptable 02/16/19 20:50: WBC 26.8 H*, RBC 4.02 L, Hgb 12.2 L, Hct 37.9 L, MCV 94.2 H, MCH 30.3, MCHC 32.1, RDW 13.9, Plt Count 499 H, MPV 7.2 L, Neut % (Auto) 95.0 H, Lymph % (Auto) 1.5 L, [place] % (Auto) 3.5, Eos % (Auto) 0.0 L, Baso % (Auto) 0.0 L , Neut # (Auto) 25.4 H, Lymph # (Auto) 0.4 L, [place] # (Auto) 0.9, Eos # (Auto) 0.0, Baso # (Auto) 0.0, Total Counted 100, Neutrophils % (Manual) 94 H, Lymphocytes % (Manual) 6 L, Platelet Estimate Normal, Anisocytosis 1+, Stom atocytes 1+ 02/16/19 20:50: Sodium 144, Potassium 3.0 L, Chloride 103, Carbon Dioxide 31, Anion Gap 13.0, BUN 23 H, Creatinine 0.62 L, Estimated Creat Clear 69, Estimated GFR 130, Est GFR ( Amer) 158, Glucose 110 H, Calcium 9.1, Total Bilirubin 0.4, AST 11 L, ALT 30, Alkaline Phosphatase 123 H, Total Protein 6.8, Albumin 2.0 L, Globulin 4.8 H, Albumin/Globulin Ratio 0.4 L 02/16/19 20:50: Lactate 1.1 02/16/19 20:50: Troponin I < 0.02 02/16/19 21:20: Urine Color Yellow, Urine Appearance Turbid, Urine pH 6.0, Ur Specific [employer] 1.025, Urine Protein Trace, Urine Glucose (UA) Negative, Urine Ketones Trace, Urine Blood Trace-l, Urine Nitrate Negative, Urine Bilirubin Negative, Urine Urobilinogen 1.0, Ur Leukocyte Esterase Negative, Urine WBC 3-5, Ur Squamous Epith Cells Occasional, Amorphous Sediment Trace, Urine Bacteria Trace 02/17/19 06:14: WBC 24.1 H*, RBC 3.77 L, Hgb 11.3 L, Hct 36.5 L, MCV 96.9 H, MCH 30.1, MCHC 31.0 L, RDW 13.8, Plt Count 476 H, MPV 7.1 L, Neut % (Auto) 97.5 H, Lymph % (Auto) 0.7 L, [place] % (Auto) 1.8, Eos % (Auto) 0.0 L, Baso % (Auto) 0.1, Neut # (Auto) 23.5 H, Lymph # (Auto) 0.2 L, [place] # (Auto) 0.4, Eos # (Auto) 0.0, Baso # (Auto) 0.0, Total Counted 100, Neutrophils % (Manual) 93 H, Band Neutrophils % 7.0, Platelet Estimate Slight increase, RBC Morphology Normal 02/17/19 06:14: Sodium 146 H, Potassium 3.3 L, Chloride 108 H, Carbon Dioxide 30, Anion Gap 11.3, BUN 22 H, Creatinine 0.51 L, Estimated Creat Clear 60, Estimated GFR 163, Est GFR ( Amer) 197 D, Glucose 104, Calcium 8.8, Magnesium 1.9 Medical History: Reports:: Hyperlipidemia, Hypertension Denies:: Cancer, Diabetes Mellitus Type 1, Diabetes Mellitus Type 2, MRSA Assessment and Plan - Assessment and plan all Dx Assessment and Plan for all problems:: BASED ON PATIENT FACTORS, RECOMMEND VANCOMYCIN 1,000MG IV EVERY 12 HOURS. WILL OBTAIN TROUGH LEVEL PRIOR TO FOURTH DOSE. PATIENT RECEIVED LOADING DOSE OF 1,250MG IN ER ON 02/16/19 AT 2230. PHARMACY WILL MONITOR AND ADJUST DOSE APPROPRIATE. -MARY MUÑOZ, JULIEN
--- NOTE | 2019-02-17 09:39 | History & Physical Report ---
*Admission Date: 02/16/19 *Chief complaint: soa *History of present illness: 63 yr old male presents to ed with c/o soa. Pt is a resident at [facility]. Per staff he has a increase in soa and fever. Pt admitted for penumonia. Per family her request hospice consult. [facility] History I have reviewed the patient's past medical history: Yes Medical History: Reports:: Hyperlipidemia, Hypertension Denies:: Cancer, Diabetes Mellitus Type 1, Diabetes Mellitus Type 2, MRSA *Have you ever received a pneumonia vaccine?: Yes (10-06-18) *Have you received a flu vaccine this season?: Yes (02-05-19) Other Medical History: Reports: Hypothyroidism, Thyroid Disease Laterality Cases: Bilateral: Tonsillectomy Other Surgeries: Yes: Colonoscopy (9 years ago) Amputation: No Fractures: No - *Social History Smoking Status: Current every day smoker Tobacco Type: cigarettes # Packs/Day (cigarettes): 1 Alcohol Intake: never Alcohol Intake Frequency:: other Substance Use Type: denies use *Occupational Status:: retired Housing: [facility] *Travel in the last 8 weeks: None Family Hx:: Mental illness Review of Systems - Review of Systems Review of systems:: unable to obtain, pertinent systems reviewed and negative unless documented below Meds Home Medications Medication Instructions Recorded Confirmed Type levothyroxine 75 mcg capsule 75 mcg PO DAILY 06/09/17 02/16/19 History lorazepam 1 mg tablet 0.5 mg PO DAILY 06/09/17 02/16/19 History pravastatin 80 mg tablet 80 mg PO HS 06/09/17 02/17/19 History haloperidol 5 mg tablet 5 mg PO HS 28 Days #56 tab 07/11/18 02/17/19 History oxcarbazepine 600 mg tablet 600 mg PO BID 28 Days #56 tab 07/11/18 02/16/19 History sertraline 100 mg tablet 100 mg PO DAILY 28 Days #28 tab 07/11/18 02/16/19 History LORazepam [Lorazepam 1mg Tablet] 1 mg PO HS 11/13/18 02/16/19 History risperiDONE [Risperdal 1mg Tablet] 4 mg PO BID 11/13/18 02/16/19 History Thiamine HCl [Vitamin B-1] 100 mg PO DAILY 11/17/18 02/16/19 History Acetaminophen 650 mg PO Q4-6H PRN 11/18/18 02/16/19 History risperiDONE [Risperidone] 0.5 mg PO 1200 11/18/18 02/16/19 History miconazole nitrate 2 % topical 1 applic TOPICAL BID PRN #30 g 11/22/18 02/16/19 Rx cream Miconazole Nitrate [Lotrimin AF] 1 spray TOPICAL DAILY 12/06/18 02/16/19 History Olopatadine HCl [Pataday] 1 drp OPHTHALMIC (EYE) DAILY 12/06/18 02/16/19 History levoFLOXacin [Levaquin 750mg 750 mg PO 1700 12/06/18 02/16/19 History tablet] Ascorbic Acid [Vitamin C] 1,000 mg PO DAILY 02/17/19 02/17/19 History Lactulose [Lactulose 10gm/15ml 30 ml PO DAILYP PRN 02/17/19 02/17/19 History Oral Soln] Allergies Allergy/AdvReac Type Severity Reaction Status Date / Time No Known Allergies Allergy Verified 02/17/19 01:10 Exam Vital signs and Labs for Last 24 Hours: Temp Pulse Resp BP Pulse Ox 98.9 F 112 H 24 122/69 93 L 02/17/19 08:00 02/17/19 08:00 02/17/19 08:00 02/17/19 08:00 02/17/19 08:00 Laboratory Results - last 24 hr 02/16/19 20:47: Specimen Source Right radial, O2 % 100, ABG pH 7.38, ABG pCO2 53.6 H, ABG pO2 74.3 L, ABG HCO3 30.9 H, ABG Total CO2 32.6 H, ABG O2 Saturation 94, ABG Base Excess 5.8 H, Melecio Test Acceptable 02/16/19 20:50: WBC 26.8 H*, RBC 4.02 L, Hgb 12.2 L, Hct 37.9 L, MCV 94.2 H, MCH 30.3, MCHC 32.1, RDW 13.9, Plt Count 499 H, MPV 7.2 L, Neut % (Auto) 95.0 H, Lymph % (Auto) 1.5 L, [place] % (Auto) 3.5, Eos % (Auto) 0.0 L, Baso % (Auto) 0.0 L , Neut # (Auto) 25.4 H, Lymph # (Auto) 0.4 L, [place] # (Auto) 0.9, Eos # (Auto) 0.0, Baso # (Auto) 0.0, Total Counted 100, Neutrophils % (Manual) 94 H, Lymphocytes % (Manual) 6 L, Platelet Estimate Normal, Anisocytosis 1+, Stomatocytes 1+ 02/16/19 20:50: Sodium 144, Potassium 3.0 L, Chloride 103, Carbon Dioxide 31, Anion Gap 13.0, BUN 23 H, Creatinine 0.62 L, Estimated Creat Clear 69, Estimated GFR 130, Est GFR ( Amer) 158, Glucose 110 H, Calcium 9.1, Total Bilirubin 0.4, AST 11 L, ALT 30, Alkaline Phosphatase 123 H, Total Protein 6.8, Albumin 2.0 L, Globulin 4.8 H, Albumin/Globulin Ratio 0.4 L 02/16/19 20:50: Lactate 1.1 02/16/19 20:50: Troponin I < 0.02 02/16/19 21:20: Urine Color Yellow, Urine Appearance Turbid, Urine pH 6.0, Ur Specific [place] 1.025, Urine Protein Trace, Urine Glucose (UA) Negative, Urine Ketones Trace, Urine Blood Trace-l, Urine Nitrate Negative, Urine Bilirubin Negative, Urine Urobilinogen 1.0, Ur Leukocyte Esterase Negative, Urine WBC 3-5, Ur Squamous Epith Cells Occasional, Amorphous Sediment Trace, Urine Bacteria Trace 02/17/19 06:14: WBC 24.1 H*, RBC 3.77 L, Hgb 11.3 L, Hct 36.5 L, MCV 96.9 H, MCH 30.1, MCHC 31.0 L, RDW 13.8, Plt Count 476 H, MPV 7.1 L, Neut % (Auto) 97.5 H, Lymph % (Auto) 0.7 L, [place] % (Auto) 1.8, Eos % (Auto) 0.0 L, Baso % (Auto) 0.1, Neut # (Auto) 23.5 H, Lymph # (Auto) 0.2 L, [place] # (Auto) 0.4, Eos # (Auto) 0.0, Baso # (Auto) 0.0, Total Counted 100, Neutrophils % (Manual) 93 H, Band Neutrophils % 7.0, Platelet Estimate Slight increase, RBC Morphology Normal 02/17/19 06:14: Sodium 146 H, Potassium 3.3 L, Chloride 108 H, Carbon Dioxide 30, Anion Gap 11.3, BUN 22 H, Creatinine 0.51 L, Estimated Creat Clear 60, Estimated GFR 163, Est GFR ( Amer) 197 D, Glucose 104, Calcium 8.8, Magnesium 1.9 I & O for Last 24 hours: Intake & Output 02/14/19 02/15/19 02/16/19 02/17/19 11:59 11:59 11:59 11:59 Intake Total 1301 / 1301 Output Total 200 / 200 Balance 1101 / 1101 Weight 126 lb 1 oz - Constitutional no acute distress, thin, chronically ill appearing - *Routine HEENT Exam Head: Present: normocephalic Eye: Present: PERRL ENT: Present: mucous membranes moist - *Routine Neck Exam Present: supple. Absent: lymphadenopathy - *Routine Respiratory Exam Present: decreased breath sounds, rhonchi, wheezes - *Routine Cardiovascular Exam Present: RRR - *Routine Abdominal Exam Present: soft, normoactive bowel sounds. Absent: tenderness - *Routine Extremities Exam Present: full ROM. Absent: cyanosis, clubbing, edema - *Routine Skin Exam Present: warm. Absent: rash - *Routine Neurological Exam Present: alert muscle stiffness - Routine Psychiatric Exam Present: normal affect Assessment and Plan (1) Healthcare-associated pneumonia Current visit: Yes Status: Acute Category: Medical Code(s): J18.9 - Pneumonia, unspecified organism (2) Palsy (spasm) of conjugate gaze Current visit: No Status: Acute Category: Medical Code(s): H51.0 - Palsy (spasm) of conjugate gaze (3) Parkinson disease Current visit: No Status: Acute Category: Medical Code(s): G20 - Parkinson's disease - Assessment and plan all Dx Assessment and Plan for all problems:: rounded with srikanth all orders per srikanth antibiotics per hospice nurse family wants hospice but wants to give antibiotics a couple days before switching to hospice/
[2019-02-18 06:33] LABS: Hematocrit 32.7 % (42.0-52.0); Lymphocytes # 0.2 K/mm3 (0.7-4.5); Lymphocytes % 1.4 % (10-50); Mean Corpuscular Volume 99.1 fl (80-94); Mean Platelet Volume 7.2 fl (7.4-10.4); Monocytes # 0.3 K/mm3 (0.1-1.0); Monocytes % 1.9 % (1.7-9.3); Neutrophils # 15.6 K/mm3 (1.8-7.8); Neutrophils % 96.7 % (37.0-80.0); Platelet Count 478 K/mm3 (142-424); Red Cell Distribution Width 13.9 % (11.5-17.5); White Blood Count 16.1 K/mm3 (4.8-10.8)
[2019-02-18 07:01] LABS: Hemoglobin 9.8 g/dL (14.1-18.0)
[2019-02-18 07:05] LABS: Calcium 8.9 mg/dL (8.5-10.1)
--- NOTE | 2019-02-18 07:27 | Electrocardiograph Report ---
APPROVED REPORT Exam: Resting ECG HR:123 bpm ECG Measurements Heart Rate 123 AXES MO 138 P 69 QRSd 82 QRS 51 QT 316 T70 QTc 452 <Conclusion> Sinus tachycardia Right atrial enlargement Junctional ST depression, probably normal Borderline ECG Electronically signed by : Lisandro Messina, 02/18/2019 07:26:48
--- NOTE | 2019-02-18 08:49 | Progress Note ---
Internal Medicine - PN: Subj *Date: 02/18/19 *Time: 08:45 Interval history: more alert and still on vasotherm-at 60%- has elevated sodium - awaiting final culture results Exam Vital signs and Labs for Last 24 Hours: Temp Pulse Resp BP Pulse Ox 98.7 F 101 H 19 139/72 93 L 02/18/19 08:00 02/18/19 08:00 02/18/19 08:00 02/18/19 08:00 02/18/19 08:00 Laboratory Results - last 24 hr 02/18/19 06:12: WBC 16.1 H D, RBC 3.30 L, Hgb 9.8 L D, Hct 32.7 L, MCV 99.1 H, MCH 29.7, MCHC 30.0 L, RDW 13.9, Plt Count 478 H, MPV 7.2 L, Neut % (Auto) 96.7 H, Lymph % (Auto) 1.4 L, [place] % (Auto) 1.9, Eos % (Auto) 0.0 L, Baso % (Auto) 0.0 L, Neut # (Auto) 15.6 H, Lymph # (Auto) 0.2 L, [place] # (Auto) 0.3, Eos # (Auto) 0.0, Baso # (Auto) 0.0 02/18/19 06:12: Sodium 152 H*, Potassium 3.0 L, Chloride 113 H, Carbon Dioxide 30, Anion Gap 12.0, BUN 27 H, Creatinine 0.41 L, Estimated Creat Clear 61, Estimated GFR 210, Est GFR ( Amer) 254 D, Glucose 104, Calcium 8.9 I & O for Last 24 hours: Intake & Output 02/15/19 02/16/19 02/17/19 02/18/19 11:59 11:59 11:59 11:59 Intake Total 1301 / 1301 2617 / 2617 Output Total 200 / 200 650 / 650 Balance 1101 / 1101 1966 / 1966 Weight 126 lb 1 oz 128 lb 3 oz Microbiology Reports for the Last 24 Hours: Microbiology 02/16/19 20:50 Blood Blood Culture - Preliminary 02/16/19 20:55 Sputum - Expectorated Sputum Gram Stain - Final 02/16/19 20:55 Sputum - Expectorated Sputum Sputum Culture - Preliminary - Constitutional no acute distress, thin - *Routine HEENT Exam Head: Present: normocephalic Eye: Present: EOMI, PERRL ENT: Present: mucous membranes dry - *Routine Neck Exam Absent: JVD - *Routine Respiratory Exam Present: decreased breath sounds - *Routine Cardiovascular Exam Present: RRR, murmur - *Routine Abdominal Exam Present: soft - *Routine Extremities Exam Absent: calf tenderness - *Routine Skin Exam Present: intact - *Routine Neurological Exam Present: alert, CN II-XII intact - Routine Psychiatric Exam Present: unable to assess Assessment and Plan (1) Healthcare-associated pneumonia Current visit: Yes Status: Acute Category: Medical Code(s): J18.9 - Pneumonia, unspecified organism (2) Palsy (spasm) of conjugate gaze Current visit: No Status: Acute Category: Medical Code(s): H51.0 - Palsy (spasm) of conjugate gaze (3) Parkinson disease Current visit: No Status: Acute Category: Medical Code(s): G20 - Parkinson's disease (4) Thrombocytosis Current visit: Yes Status: Acute Category: Medical Code(s): D47.3 - Essential (hemorrhagic) thrombocythemia (5) Hypernatremia Current visit: Yes Status: Acute Category: Medical Code(s): E87.0 - Hyperosmolality and hypernatremia
--- NOTE | 2019-02-18 11:09 | Pharmacy Consult Notes ---
- Pharmacy Consult Date: 02/18/19 Time: 11:08 Referring provider: DR. ASTORGA Reason for Consult:: VANCOMYCIN TROUGH LEVEL Allergies and ADEs:: Allergies Allergy/AdvReac Type Severity Reaction Status Date / Time No Known Allergies Allergy Verified 02/17/19 01:10 Home Medications:: Home Medications Medication Instructions Recorded Confirmed Type levothyroxine 75 mcg capsule 75 mcg PO DAILY 06/09/17 02/16/19 History lorazepam 1 mg tablet 0.5 mg PO DAILY 06/09/17 02/16/19 History pravastatin 80 mg tablet 80 mg PO HS 06/09/17 02/17/19 History haloperidol 5 mg tablet 5 mg PO HS 28 Days #56 tab 07/11/18 02/17/19 History oxcarbazepine 600 mg tablet 600 mg PO BID 28 Days #56 tab 07/11/18 02/16/19 History sertraline 100 mg tablet 100 mg PO DAILY 28 Days #28 tab 07/11/18 02/16/19 History LORazepam [Lorazepam 1mg Tablet] 1 mg PO HS 11/13/18 02/16/19 History risperiDONE [Risperdal 1mg Tablet] 4 mg PO BID 11/13/18 02/16/19 History Thiamine HCl [Vitamin B-1] 100 mg PO DAILY 11/17/18 02/16/19 History Acetaminophen 650 mg PO Q4-6H PRN 11/18/18 02/16/19 History risperiDONE [Risperidone] 0.5 mg PO 1200 11/18/18 02/16/19 History miconazole nitrate 2 % topical 1 applic TOPICAL BID PRN #30 g 11/22/18 02/16/19 Rx cream Miconazole Nitrate [Lotrimin AF] 1 spray TOPICAL DAILY 12/06/18 02/16/19 History Olopatadine HCl [Pataday] 1 drp OPHTHALMIC (EYE) DAILY 12/06/18 02/16/19 History levoFLOXacin [Levaquin 750mg 750 mg PO 1700 12/06/18 02/16/19 History tablet] Ascorbic Acid [Vitamin C] 1,000 mg PO DAILY 02/17/19 02/17/19 History Lactulose [Lactulose 10gm/15ml 30 ml PO DAILYP PRN 02/17/19 02/17/19 History Oral Soln] Height: 1.83 m Weight: 58.145 kg Laboratory Results:: Laboratory Results - last 24 hr 02/18/19 06:12: WBC 16.1 H D, RBC 3.30 L, Hgb 9.8 L D, Hct 32.7 L, MCV 99.1 H, MCH 29.7, MCHC 30.0 L, RDW 13.9, Plt Count 478 H, MPV 7.2 L, Neut % (Auto) 96.7 H, Lymph % (Auto) 1.4 L, [place] % (Auto) 1.9, Eos % (Auto) 0.0 L, Baso % (Auto) 0.0 L, Neut # (Auto) 15.6 H, Lymph # (Auto) 0.2 L, [place] # (Auto) 0.3, Eos # (Auto) 0.0, Baso # (Auto) 0.0 02/18/19 06:12: Sodium 152 H*, Potassium 3.0 L, Chloride 113 H, Carbon Dioxide 30, Anion Gap 12.0, BUN 27 H, Creatinine 0.41 L, Estimated Creat Clear 61, Estimated GFR 210, Est GFR ( Amer) 254 D, Glucose 104, Calcium 8.9 02/18/19 09:50: Vancomycin Trough 5.3 L Medical History: Reports:: Hyperlipidemia, Hypertension Denies:: Cancer, Diabetes Mellitus Type 1, Diabetes Mellitus Type 2, MRSA Assessment and Plan (1) Healthcare-associated pneumonia Current visit: Yes Status: Acute Category: Medical Code(s): J18.9 - Pneumonia, unspecified organism (2) Palsy (spasm) of conjugate gaze Current visit: No Status: Acute Category: Medical Code(s): H51.0 - Palsy (spasm) of conjugate gaze (3) Parkinson disease Current visit: No Status: Acute Category: Medical Code(s): G20 - Parkinson's disease (4) Thrombocytosis Current visit: Yes Status: Acute Category: Medical Code(s): D47.3 - Essential (hemorrhagic) thrombocythemia (5) Hypernatremia Current visit: Yes Status: Acute Category: Medical Code(s): E87.0 - Hyperosmolality and hypernatremia - Assessment and plan all Dx Assessment and Plan for all problems:: BASED ON VANCOMYCIN TROUGH LEVEL AND PATIENT FACTORS, RECOMMEND CHANGING INTERVAL TO VANCOMYCIN 1 GM IV Q8H. PHARMACY WILL CONTINUE TO MONITOR DAILY AND ADJUST APPROPRIATE.
[2019-02-18 12:48] LABS: Lymphocytes % 2 % (10-50); Monocytes % 1 % (2-9); Neutrophils % 96 % (42-76); RBC Morphology Normal; Total Cells Counted 100
[2019-02-19 06:43] LABS: Hematocrit 30.6 % (42.0-52.0); Hemoglobin 9.3 g/dL (14.1-18.0); Lymphocytes # 0.2 K/mm3 (0.7-4.5); Lymphocytes % 1.5 % (10-50); Mean Corpuscular HGB Conc 30.5 g/dL (31.8-35.4); Mean Corpuscular Volume 97.1 fl (80-94); Mean Platelet Volume 7.8 fl (7.4-10.4); Monocytes # 0.3 K/mm3 (0.1-1.0); Monocytes % 2.2 % (1.7-9.3); Neutrophils # 13.2 K/mm3 (1.8-7.8); Neutrophils % 96.2 % (37.0-80.0); Platelet Count 411 K/mm3 (142-424); Red Blood Count 3.15 M/mm3 (4.60-6.20); Red Cell Distribution Width 13.6 % (11.5-17.5); White Blood Count 13.8 K/mm3 (4.8-10.8)
[2019-02-19 06:47] LABS: Anion Gap 10.1 mEq/L (5-15); Calcium 8.8 mg/dL (8.5-10.1)
[2019-02-19 07:10] LABS: Hypochromasia 1+; Lymphocytes % 4 % (10-50); Macrocytosis 1+; Neutrophils % 87 % (42-76); Rouleaux 2+; Total Cells Counted 100
--- NOTE | 2019-02-19 09:14 | Progress Note ---
Internal Medicine - PN: Subj *Date: 02/19/19 *Time: 09:10 Interval history: doing better more alert Exam Vital signs and Labs for Last 24 Hours: Temp Pulse Resp BP Pulse Ox 99.9 F H 58 L 19 132/65 93 L 02/19/19 07:56 02/19/19 07:56 02/19/19 07:56 02/19/19 07:56 02/19/19 07:56 Laboratory Results - last 24 hr 02/18/19 06:12: Total Counted 100, Neutrophils % (Manual) 96 H, Lymphocytes % (Manual) 2 L, Monocytes % (Manual) 1 L, Metamyelocytes % 1.0, Platelet Estimate Slight increase, RBC Morphology Normal 02/18/19 09:50: Vancomycin Trough 5.3 L 02/19/19 06:12: WBC 13.8 H, RBC 3.15 L, Hgb 9.3 L, Hct 30.6 L, MCV 97.1 H, MCH 29.6, MCHC 30.5 L, RDW 13.6, Plt Count 411, MPV 7.8, Neut % (Auto) 96.2 H, Lymph % (Auto) 1.5 L, [place] % (Auto) 2.2, Eos % (Auto) 0.0 L, Baso % (Auto) 0.0 L, Neut # (Auto) 13.2 H, Lymph # (Auto) 0.2 L, [place] # (Auto) 0.3, Eos # (Auto) 0.0, Baso # (Auto) 0.0, Total Counted 100, Neutrophils % (Manual) 87 H, Band Neutrophils % 9.0 H, Lymphocytes % (Manual) 4 L, Platelet Estimate Normal, Hypochromasia 1+, Macrocytosis 1+, [place] 2+ 02/19/19 06:12: Sodium 150 H, Potassium 3.1 L, Chloride 113 H, Carbon Dioxide 30, Anion Gap 10.1, BUN 24 H, Creatinine 0.50 L D, Estimated Creat Clear 64, Estimated GFR 167, Est GFR ( Amer) 202 D, Glucose 139 H D, Calcium 8.8 I & O for Last 24 hours: Intake & Output 02/16/19 02/17/19 02/18/19 02/19/19 11:59 11:59 11:59 11:59 Intake Total 1301 / 1301 2617 / 2617 3561 / 3561 Output Total 200 / 200 650 / 650 425 / 425 Balance 1101 / 1101 1966 / 1966 3136 / 3136 Weight 126 lb 1 oz 128 lb 3 oz 134 lb 9 oz Microbiology Reports for the Last 24 Hours: Microbiology 02/16/19 20:50 Blood Blood Culture - Preliminary NO GROWTH AFTER 48 HOURS 02/16/19 20:50 Blood Blood Culture - Preliminary 02/16/19 20:55 Sputum - Expectorated Sputum Gram Stain - Final 02/16/19 20:55 Sputum - Expectorated Sputum Sputum Culture - Preliminary - Constitutional no acute distress - *Routine HEENT Exam Head: Present: normocephalic Eye: Present: EOMI, PERRL ENT: Present: mucous membranes dry - *Routine Neck Exam Absent: JVD - *Routine Respiratory Exam Present: decreased breath sounds - *Routine Cardiovascular Exam Present: RRR, murmur - *Routine Abdominal Exam Present: soft - *Routine Extremities Exam Absent: calf tenderness - *Routine Skin Exam Present: intact - *Routine Neurological Exam Present: alert, CN II-XII intact - Routine Psychiatric Exam Present: unable to assess Assessment and Plan (1) Healthcare-associated pneumonia Current visit: Yes Status: Acute Category: Medical Code(s): J18.9 - Pneumonia, unspecified organism (2) Palsy (spasm) of conjugate gaze Current visit: No Status: Acute Category: Medical Code(s): H51.0 - Palsy (spasm) of conjugate gaze (3) Parkinson disease Current visit: No Status: Acute Category: Medical Code(s): G20 - Parkinson's disease (4) Thrombocytosis Current visit: Yes Status: Acute Category: Medical Code(s): D47.3 - Essential (hemorrhagic) thrombocythemia (5) Hypernatremia Current visit: Yes Status: Acute Category: Medical Code(s): E87.0 - Hyperosmolality and hypernatremia
--- NOTE | 2019-02-19 12:05 | Pharmacy Consult Notes ---
- Pharmacy Consult Date: 02/19/19 Time: 12:04 Referring provider: DR. ASTORGA Reason for Consult:: VANCOMYCIN TROUGH LEVEL Allergies and ADEs:: Allergies Allergy/AdvReac Type Severity Reaction Status Date / Time No Known Allergies Allergy Verified 02/17/19 01:10 Home Medications:: Home Medications Medication Instructions Recorded Confirmed Type levothyroxine 75 mcg capsule 75 mcg PO DAILY 06/09/17 02/16/19 History lorazepam 1 mg tablet 0.5 mg PO DAILY 06/09/17 02/16/19 History pravastatin 80 mg tablet 80 mg PO HS 06/09/17 02/17/19 History haloperidol 5 mg tablet 5 mg PO HS 28 Days #56 tab 07/11/18 02/17/19 History oxcarbazepine 600 mg tablet 600 mg PO BID 28 Days #56 tab 07/11/18 02/16/19 History sertraline 100 mg tablet 100 mg PO DAILY 28 Days #28 tab 07/11/18 02/16/19 History LORazepam [Lorazepam 1mg Tablet] 1 mg PO HS 11/13/18 02/16/19 History risperiDONE [Risperdal 1mg Tablet] 4 mg PO BID 11/13/18 02/16/19 History Thiamine HCl [Vitamin B-1] 100 mg PO DAILY 11/17/18 02/16/19 History Acetaminophen 650 mg PO Q4-6H PRN 11/18/18 02/16/19 History risperiDONE [Risperidone] 0.5 mg PO 1200 11/18/18 02/16/19 History miconazole nitrate 2 % topical 1 applic TOPICAL BID PRN #30 g 11/22/18 02/16/19 Rx cream Miconazole Nitrate [Lotrimin AF] 1 spray TOPICAL DAILY 12/06/18 02/16/19 History Olopatadine HCl [Pataday] 1 drp OPHTHALMIC (EYE) DAILY 12/06/18 02/16/19 History levoFLOXacin [Levaquin 750mg 750 mg PO 1700 12/06/18 02/16/19 History tablet] Ascorbic Acid [Vitamin C] 1,000 mg PO DAILY 02/17/19 02/17/19 History Lactulose [Lactulose 10gm/15ml 30 ml PO DAILYP PRN 02/17/19 02/17/19 History Oral Soln] Height: 1.83 m Weight: 61.037 kg Laboratory Results:: Laboratory Results - last 24 hr 02/16/19 21:20: Urine Color Yellow, Urine Appearance Turbid, Urine pH 6.0, Ur Specific [place] 1.025, Urine Protein Trace, Urine Glucose (UA) Negative, Urine Ketones Trace, Urine Blood Trace-l, Urine Nitrate Negative, Urine Bilirubin Negative, Urine Urobilinogen 1.0, Ur Leukocyte Esterase Negative, Urine WBC 3-5, Ur Squamous Epith Cells Occasional, Amorphous Sediment Trace, Urine Bacteria Trace 02/18/19 06:12: Total Counted 100, Neutrophils % (Manual) 96 H, Lymphocytes % (Manual) 2 L, Monocytes % (Manual) 1 L, Metamyelocytes % 1.0, Platelet Estimate Slight increase, RBC Morphology Normal 02/19/19 06:12: WBC 13.8 H, RBC 3.15 L, Hgb 9.3 L, Hct 30.6 L, MCV 97.1 H, MCH 29.6, MCHC 30.5 L, RDW 13.6, Plt Count 411, MPV 7.8, Neut % (Auto) 96.2 H, Lymph % (Auto) 1.5 L, [place] % (Auto) 2.2, Eos % (Auto) 0.0 L, Baso % (Auto) 0.0 L, Neut # (Auto) 13.2 H, Lymph # (Auto) 0.2 L, [place] # (Auto) 0.3, Eos # (Auto) 0.0, Baso # (Auto) 0.0, Total Counted 100, Neutrophils % (Manual) 87 H, Band Neutrophils % 9.0 H, Lymphocytes % (Manual) 4 L, Platelet Estimate Normal, Hypochromasia 1+, Macrocytosis 1+, [place]le[place] 2+ 02/19/19 06:12: Sodium 150 H, Potassium 3.1 L, Chloride 113 H, Carbon Dioxide 30, Anion Gap 10.1, BUN 24 H, Creatinine 0.50 L D, Estimated Creat Clear 64, Estimated GFR 167, Est GFR ( Amer) 202 D, Glucose 139 H D, Calcium 8.8 02/19/19 10:28: Vancomycin Trough 14.3 Medical History: Reports:: Hyperlipidemia, Hypertension Denies:: Cancer, Diabetes Mellitus Type 1, Diabetes Mellitus Type 2, MRSA Assessment and Plan (1) Healthcare-associated pneumonia Current visit: Yes Status: Acute Category: Medical Code(s): J18.9 - Pneumonia, unspecified organism (2) Palsy (spasm) of conjugate gaze Current visit: No Status: Acute Category: Medical Code(s): H51.0 - Palsy (spasm) of conjugate gaze (3) Parkinson disease Current visit: No Status: Acute Category: Medical Code(s): G20 - Parkinson's disease (4) Thrombocytosis Current visit: Yes Status: Acute Category: Medical Code(s): D47.3 - Essential (hemorrhagic) thrombocythemia (5) Hypernatremia Current visit: Yes Status: Acute Category: Medical Code(s): E87.0 - Hyperosmolality and hypernatremia - Assessment and plan all Dx Assessment and Plan for all problems:: BASED ON PATIENT FACTORS, RECOMMEND CONTINUING VANCOMYCIN 1 GM IV Q8H. PHARMACY WILL CONTINUE TO MONITOR DAILY AND ADJUST APPROPRIATE.
[2019-02-20 06:09] LABS: Eosinophils # 0.1 K/mm3 (0.0-0.4); Eosinophils % 0.5 % (0.1-12.0); Hematocrit 31.7 % (42.0-52.0); Hemoglobin 9.7 g/dL (14.1-18.0); Lymphocytes # 0.2 K/mm3 (0.7-4.5); Lymphocytes % 1.4 % (10-50); Mean Corpuscular HGB Conc 30.6 g/dL (31.8-35.4); Mean Platelet Volume 7.7 fl (7.4-10.4); Monocytes # 0.6 K/mm3 (0.1-1.0); Monocytes % 3.7 % (1.7-9.3); Neutrophils # 16.2 K/mm3 (1.8-7.8); Neutrophils % 94.5 % (37.0-80.0); Platelet Count 373 K/mm3 (142-424); Red Blood Count 3.26 M/mm3 (4.60-6.20); Red Cell Distribution Width 13.8 % (11.5-17.5); White Blood Count 17.2 K/mm3 (4.8-10.8)
[2019-02-20 06:20] LABS: Calcium 8.5 mg/dL (8.5-10.1)
[2019-02-20 06:34] LABS: Lymphocytes % 6 % (10-50); Monocytes % 3 % (2-9); Neutrophils % 91 % (42-76); RBC Morphology Normal; Total Cells Counted 100
--- NOTE | 2019-02-20 07:27 | Progress Note ---
Internal Medicine - PN: Subj *Date: 02/20/19 *Time: 07:26 Exam Vital signs and Labs for Last 24 Hours: Temp Pulse Resp BP Pulse Ox 98.5 F 88 20 156/76 H 90 L 02/20/19 04:00 02/20/19 06:22 02/20/19 04:00 02/20/19 04:00 02/20/19 06:22 Laboratory Results - last 24 hr 02/16/19 21:20: Urine Color Yellow, Urine Appearance Turbid, Urine pH 6.0, Ur Specific [place] 1.025, Urine Protein Trace, Urine Glucose (UA) Negative, Urine Ketones Trace, Urine Blood Trace-l, Urine Nitrate Negative, Urine Bilirubin Negative, Urine Urobilinogen 1.0, Ur Leukocyte Esterase Negative, Urine WBC 3-5, Ur Squamous Epith Cells Occasional, Amorphous Sediment Trace, Urine Bacteria Trace 02/19/19 10:28: Vancomycin Trough 14.3 02/20/19 06:00: WBC 17.2 H, RBC 3.26 L, Hgb 9.7 L, Hct 31.7 L, MCV 97.0 H, MCH 29.7, MCHC 30.6 L, RDW 13.8, Plt Count 373, MPV 7.7, Neut % (Auto) 94.5 H, Lymph % (Auto) 1.4 L, [place] % (Auto) 3.7, Eos % (Auto) 0.5, Baso % (Auto) 0.0 L, Neut # (Auto) 16.2 H, Lymph # (Auto) 0.2 L, [place] # (Auto) 0.6, Eos # (Auto) 0.1, Baso # (Auto) 0.0, Total Counted 100, Neutrophils % (Manual) 91 H, Lymphocytes % (Manual) 6 L, Monocytes % (Manual) 3, Platelet Estimate Normal, RBC Morphology Normal 02/20/19 06:00: Sodium 149 H, Potassium 3.0 L, Chloride 112 H, Carbon Dioxide 31, Anion Gap 9.0, BUN 22 H, Creatinine 0.37 L D, Estimated Creat Clear 64, Estimated GFR 236, Est GFR ( Amer) 286 D, Glucose 134 H, Calcium 8.5 I & O for Last 24 hours: Intake & Output 02/17/19 02/18/19 02/19/19 02/20/19 23:59 23:59 23:59 23:59 Intake Total 1933 / 1933 3435 / 3435 3332 / 3332 1719 / 1719 Output Total 700 / 700 575 / 575 800 / 800 500 / 500 Balance 1233 / 1233 2860 / 2860 2532 / 2532 1219 / 1219 Weight 57.181 kg 58.145 kg 61.037 kg 61.83 kg Microbiology Reports for the Last 24 Hours: Microbiology 02/16/19 20:55 Sputum - Expectorated Sputum Gram Stain - Final 02/16/19 20:55 Sputum - Expectorated Sputum Sputum Culture - Preliminary Klebsiella pneumoniae 02/16/19 20:50 Blood Blood Culture - Preliminary Gram Positive Cocci Assessment and Plan (1) Healthcare-associated pneumonia Current visit: Yes Status: Acute Category: Medical Code(s): J18.9 - Pneumonia, unspecified organism (2) Palsy (spasm) of conjugate gaze Current visit: No Status: Acute Category: Medical Code(s): H51.0 - Palsy (spasm) of conjugate gaze (3) Parkinson disease Current visit: No Status: Acute Category: Medical Code(s): G20 - Parkinson's disease (4) Thrombocytosis Current visit: Yes Status: Acute Category: Medical Code(s): D47.3 - Essential (hemorrhagic) thrombocythemia (5) Hypernatremia Current visit: Yes Status: Acute Category: Medical Code(s): E87.0 - Hyperosmolality and hypernatremia The patient's infection will respond to the chosen ABx?: Yes Is the patient receiving the right drug, dose, and route?: Yes Could a more targeted ABx be ordered?: No (KLEBSIELLA IN SPUTUM SENSITIVE TO ZOSYN)
--- NOTE | 2019-02-20 13:25 | Progress Note ---
Internal Medicine - PN: Subj *Date: 02/20/19 *Time: 13:21 Interval history: doing better - with pos sputum and blood culture Exam Vital signs and Labs for Last 24 Hours: Temp Pulse Resp BP Pulse Ox 98.3 F 51 L 17 154/78 H 99 02/20/19 12:00 02/20/19 12:00 02/20/19 12:00 02/20/19 12:00 02/20/19 12:00 Laboratory Results - last 24 hr 02/20/19 06:00: WBC 17.2 H, RBC 3.26 L, Hgb 9.7 L, Hct 31.7 L, MCV 97.0 H, MCH 29.7, MCHC 30.6 L, RDW 13.8, Plt Count 373, MPV 7.7, Neut % (Auto) 94.5 H, Lymph % (Auto) 1.4 L, Sutter % (Auto) 3.7, Eos % (Auto) 0.5, Baso % (Auto) 0.0 L, Neut # (Auto) 16.2 H, Lymph # (Auto) 0.2 L, Sutter # (Auto) 0.6, Eos # (Auto) 0.1, Baso # (Auto) 0.0, Total Counted 100, Neutrophils % (Manual) 91 H, Lymphocytes % (Manual) 6 L, Monocytes % (Manual) 3, Platelet Estimate Normal, RBC Morphology Normal 02/20/19 06:00: Sodium 149 H, Potassium 3.0 L, Chloride 112 H, Carbon Dioxide 31, Anion Gap 9.0, BUN 22 H, Creatinine 0.37 L D, Estimated Creat Clear 64, Estimated GFR 236, Est GFR ( Amer) 286 D, Glucose 134 H, Calcium 8.5 I & O for Last 24 hours: Intake & Output 02/18/19 02/19/19 02/20/19 02/21/19 11:59 11:59 11:59 11:59 Intake Total 2617 / 2617 3561 / 3561 3680 / 3680 Output Total 650 / 650 1125 / 1125 600 / 600 Balance 1966 / 1966 2436 / 2436 3080 / 3080 Weight 128 lb 3 oz 134 lb 9 oz 136 lb 5 oz Microbiology Reports for the Last 24 Hours: Microbiology 02/16/19 20:50 Blood Blood Culture - Preliminary Staphylococcus hominis 02/16/19 20:55 Sputum - Expectorated Sputum Gram Stain - Final 02/16/19 20:55 Sputum - Expectorated Sputum Sputum Culture - Final Klebsiella pneumoniae - Constitutional no acute distress - *Routine HEENT Exam Head: Present: normocephalic Eye: Present: EOMI, PERRL ENT: Present: mucous membranes dry - *Routine Neck Exam Absent: JVD - *Routine Respiratory Exam Present: decreased breath sounds - *Routine Cardiovascular Exam Present: RRR - *Routine Abdominal Exam Present: soft - *Routine Extremities Exam Absent: calf tenderness - *Routine Skin Exam Present: intact - *Routine Neurological Exam Present: CN II-XII intact - Routine Psychiatric Exam Present: unable to assess Assessment and Plan (1) Healthcare-associated pneumonia Current visit: Yes Status: Acute Category: Medical Code(s): J18.9 - Pneumonia, unspecified organism (2) Palsy (spasm) of conjugate gaze Current visit: No Status: Acute Category: Medical Code(s): H51.0 - Palsy (spasm) of conjugate gaze (3) Parkinson disease Current visit: No Status: Acute Category: Medical Code(s): G20 - Parkinson's disease (4) Thrombocytosis Current visit: Yes Status: Acute Category: Medical Code(s): D47.3 - Essential (hemorrhagic) thrombocythemia (5) Hypernatremia Current visit: Yes Status: Acute Category: Medical Code(s): E87.0 - Hyperosmolality and hypernatremia (6) Klebsiella pneumonia Current visit: Yes Status: Acute Qualifiers: Laterality: right Lung location: lower lobe of lung Qualified Code(s): J15.0 - Pneumonia due to Klebsiella pneumoniae Category: Medical Code(s): J15.0 - Pneumonia due to Klebsiella pneumoniae (7) MRSA bacteremia Current visit: Yes Status: Acute Category: Medical Code(s): R78.81 - Bacteremia
[2019-02-20 17:01] LABS: ABG HCO3 29.7 mmhg (22.0-26.0); ABG Oxygen Saturation 93 % (90-100); ABG PCO2 42.1 mmhg (35.0-45.0); ABG PH 7.47 mmol/L (7.35-7.45); ABG PO2 64.7 mmhg (80-100)
[2019-02-20 17:03] LABS: Allen's Test Patient Unable; Oxygen 30% veni mask %
--- NOTE | 2019-02-21 09:18 | Discharge Summary ---
General - General Admission date:: 02/16/19 Discharge date: 02/21/19 HPI HPI: 63 yr old male presents to ed with c/o soa. Pt is a resident at [facility]. Per staff he has a increase in soa and fever. Pt admitted for penumonia. Per family her request hospice consult. Hospital Course Hospital Course: 63 yr old male presents to ed with c/o soa. Pt is a resident at [facility]. Per staff he has a increase in soa and fever. Pt admitted for penumonia. Per family her request hospice consult. Will discharge back to [facility] under hospice care. Wound care facility will follow decubitus on coccyx that was present on admission. Has been on Zosyn IV while in hospital. Will be discharged on minocycline to cover Klebsiella pneumoniae in his sputum and Staphylococcus hominis in his blood. Objective Vital signs: Temp Pulse Resp BP Pulse Ox 97.4 F L 57 L 18 154/80 H 97 02/21/19 07:50 02/21/19 07:50 02/21/19 07:50 02/21/19 07:50 02/21/19 07:50 no acute distress - *Routine HEENT Exam Head: Present: normocephalic, atraumatic. Absent: tenderness of temporal artery Eye: Present: EOMI, PERRL, normal accommodation. Absent: periorbital tenderness ENT: Present: mucous membranes dry - *Routine Neck Exam Present: full ROM, trachea midline. Absent: thyromegaly, tracheal deviation - *Routine Respiratory Exam Present: CTA bilaterally. Absent: accessory muscle use - *Routine Cardiovascular Exam Present: RRR - *Routine Abdominal Exam Present: soft, normoactive bowel sounds. Absent: tenderness, firm - *Routine Extremities Exam Present: pulses intact. Absent: calf tenderness - Routine Back/Spine/Pelvis Exam Back/Spine: Present: full ROM. Absent: CVA tenderness - *Routine Skin Exam Present: wounds Comments: Stg IV wound to coccyx w/ drsg - *Routine Neurological Exam Present: alert, CN II-XII intact Results Labs on day of discharge: Labs from last 24 hours 02/20/19 02/20/19 16:49 16:44 Specimen Source Left radial O2 % 30% donal mask ABG pH 7.47 H ABG pCO2 42.1 ABG pO2 64.7 L ABG HCO3 29.7 H ABG Total CO2 31.0 H ABG O2 Saturation 93 ABG Base Excess 6.0 H Melecio Test Patient unable Troponin I < 0.02 Preliminary micro results at discharge 02/16/19 20:50 Blood Culture - Preliminary Blood Staphylococcus hominis 02/16/19 20:50 Blood Culture - Preliminary Blood NO GROWTH AFTER 48 HOURS - Additional Comments Rounded with Dr. Byers, all orders per Dr. Byers 1. We will discharge back to [place] under hospice 2. Wound care will follow decubitus at [facility] 3. Will discharge on doxycycline 100 mg twice daily x10 days 4. JAQUI Ahumada DS: Diagnosis - Discharge Diagnosis (1) Healthcare-associated pneumonia Status: Acute (2) Palsy (spasm) of conjugate gaze Status: Acute (3) Parkinson disease Status: Acute (4) Thrombocytosis Status: Acute (5) Hypernatremia Status: Acute (6) Klebsiella pneumonia Status: Acute (7) MRSA bacteremia Status: Acute (8) Wound abscess Status: Acute (9) Decubital ulcer Status: Chronic Discharge Plan - Patient Discharge Instructions ACTIVITY: Continue current activity DIET: continue same diet Patient Instructions: Pneumonia-Adult, Chronic Obstructive Pulmonary Disease, Sepsis, Methicillin-Resistant Staph Infection, Pneumococcal Vaccine, DI for Chronic Obstructive Pulmonary Disease, DI for Pneumonia -- Adult, DI for Malnutrition - Older Adults, DI for Weight Loss, DI for Sepsis -- Adult - Follow up Plan Follow up with: Osmin Lopez APRN [Advanced Practice Nurse] - 1 week Disposition: [facility] Home Medications: Home Medications Medication Instructions Recorded Confirmed Type levothyroxine 75 mcg capsule 75 mcg PO DAILY 06/09/17 02/16/19 History lorazepam 1 mg tablet 0.5 mg PO DAILY 06/09/17 02/16/19 History pravastatin 80 mg tablet 80 mg PO HS 06/09/17 02/17/19 History haloperidol 5 mg tablet 5 mg PO HS 28 Days #56 tab 07/11/18 02/17/19 History oxcarbazepine 600 mg tablet 600 mg PO BID 28 Days #56 tab 07/11/18 02/16/19 History sertraline 100 mg tablet 100 mg PO DAILY 28 Days #28 tab 07/11/18 02/16/19 History LORazepam [Lorazepam 1mg Tablet] 1 mg PO HS 11/13/18 02/16/19 History Thiamine HCl [Vitamin B-1] 100 mg PO DAILY 11/17/18 02/16/19 History Acetaminophen 650 mg PO Q4-6H PRN 11/18/18 02/16/19 History miconazole nitrate 2 % topical 1 applic TOPICAL BID PRN #30 g 11/22/18 02/16/19 Rx cream Miconazole Nitrate [Lotrimin AF] 1 spray TOPICAL DAILY 12/06/18 02/16/19 History Olopatadine HCl [Pataday] 1 drp OPHTHALMIC (EYE) DAILY 12/06/18 02/16/19 History Ascorbic Acid [Vitamin C] 1,000 mg PO DAILY 02/17/19 02/17/19 History Lactulose [Lactulose 10gm/15ml 30 ml PO DAILYP PRN 02/17/19 02/17/19 History Oral Soln] Minocycline HCl [Minocin 100mg 100 mg PO BID 10 Days #20 cap 02/21/19 Rx capsule] Prescriptions/Medication Reconciliation: New Minocycline HCl [Minocin 100mg capsule] 100 mg PO BID 10 Days #20 cap Continued levothyroxine 75 mcg capsule 75 mcg PO DAILY lorazepam 1 mg tablet 0.5 mg PO DAILY pravastatin 80 mg tablet 80 mg PO HS oxcarbazepine 600 mg tablet 600 mg PO BID 28 Days #56 tab sertraline 100 mg tablet 100 mg PO DAILY 28 Days #28 tab miconazole nitrate 2 % topical cream 1 applic TOPICAL BID PRN #30 g PRN Reason: yeast haloperidol 5 mg tablet 5 mg PO HS 28 Days #56 tab LORazepam [Lorazepam 1mg Tablet] 1 mg PO HS Miconazole Nitrate [Lotrimin AF] 1 spray TOPICAL DAILY Olopatadine HCl [Pataday] 1 drp OPHTHALMIC (EYE) DAILY Thiamine HCl [Vitamin B-1] 100 mg PO DAILY Acetaminophen 650 mg PO Q4-6H PRN PRN Reason: PAIN/FEVER Lactulose [Lactulose 10gm/15ml Oral Soln] 30 ml PO DAILYP PRN PRN Reason: Constipation Ascorbic Acid [Vitamin C] 1,000 mg PO DAILY Discontinued levoFLOXacin [Levaquin 750mg tablet] 750 mg PO 1700 risperiDONE [Risperdal 1mg Tablet] 4 mg PO BID risperiDONE [Risperidone] 0.5 mg PO 1200 - Problem Reconciliation Problems Reviewed?: Yes
--- NOTE | 2019-02-21 15:27 | Electrocardiograph Report ---
APPROVED REPORT Exam: Resting ECG HR:53 bpm ECG Measurements Heart Rate 53 AXES TN 112 P 27 QRSd 90 QRS 62 QT 442 T59 QTc 414 <Conclusion> Sinus bradycardia Otherwise normal ECG Electronically signed by : Jose Daniel, 02/21/2019 15:26:50
== END 2019-02-21 14:05 | disposition hospice, inpatient (51) | DRG 177 ==
LOC: ER 20:34 → 2ND 20:34 → OBSVTOIN 23:09 → 2ND 23:10
PROVIDERS: ADMIT Emergency Medicine; ATTEND Emergency Medicine
CPT/HCPCS: 36415; 71010; 71045; 80048; 80053; 80202; 81001; 82803; 83605; 83735; 84484; 85007; 85025; 87040; 87070; 87077; 87186; 87205; 93005; 94640; 94761; 96365; 96367; 96375; 99285; J2405; J2543; J3370